=== PATIENT | female | born 1955 | race Caucasian/White ===

== ENCOUNTER 2021-12-29 13:20 | Inpatient (IN) | payer MEDICARE, OTHER, SELFPAY ==
[2021-12-29] VITALS (13 sets, daily range): BP systolic 103–146; BP diastolic 55–94; PULSE 67–93; RESP 18–32; TEMP 36.7–36.9; O2SAT 95–98; BMI 31.5; BMI 42.3
--- NOTE | 2021-12-29 13:52 | ED_ITS ---
HPI - Nausea/Vomiting/Diarrhea General Date Seen: 12/29/21 <Bienvenido Irwin MD - Last Filed: 12/29/21 17:33> Chief complaint: Weakness <Genaro Chambers MD - Last Filed: 12/31/21 12:25> Stated complaint: Diarrhea <Genaro Chambers MD - Last Filed: 12/31/21 12:25> Time Seen by Provider: 12/29/21 13:40 <Genaro Chambers MD - Last Filed: 12/31/21 12:25> History of Present Illness HPI Narrative: 66-year-old woman presenting to the emergency department via EMS with concern of generally weak. Feeling lightheaded; describing in particular any orthostatic maneuver tends to make a rather lightheaded. Increasing perhaps over this last week. Has been having some night sweats chills though has not measured a temperature; presume is a fever. No rash. No dysuria. Extremely exertionally fatigued. No chest pain. She notes how though when she gets up at night to urinate she is rather unsteady. She feels she sees spots in the bathroom like she might be about to pass out. Has been having copious watery stools over the last 2 months or so; started off tended 15 times a day. Two days ago no diarrhea but today has had maybe 10 episodes again. Denies any antibiotics prior to this or during this time. No hematochezia. Over the last week and a half has had increasing cough productive of some whitish sputum. Has also been having some nausea with coughing jags. Son brought some Gatorade over. That apparently did seem to help. Lives independently in an apartment with 2 cats. No abdominal pain. Does have a cardiac history with what sounds like bypass and then stenting. Was seen a week ago in [facility]. Looks like had a CBC there and electrolytes. No otherwise chest x-ray EKG stool studies of some sort were done. She reports that she found out yesterday that the stool studies were normal. Past medical surgical history She reports only abdominal surgery was a Cardiovascular disease status post ?open heart surgery? and stenting. Dyslipidemia environmental/seasonal allergies GERD Medication list that she provides includes acetaminophen Albuterol Amlodipine Aspirin Atorvastatin Budesonide-formoterol Cetirizine Cholecalciferol Ezetimibe Metoprolol succinate 25 mg Nitroglycerin Omeprazole Polyethylene glycol Potassium citrate taking 30 mEq daily <Genaro Chambers MD - Last Filed: 12/31/21 12:25> Related Data Home medications: Home Medications Medication Instructions Recorded Confirmed acetaminophen 325 mg capsule 650 mg PO Q6H PRN 12/29/21 12/29/21 albuterol sulfate 90 mcg/actuation 1 inh inhalation Q4-6H PRN 12/29/21 12/29/21 aerosol inhaler amlodipine 5 mg tablet 5 mg PO DAILY 12/29/21 12/29/21 aspirin 81 mg tablet,delayed 81 mg PO DAILY 12/29/21 12/29/21 release (Adult Aspirin Regimen) atorvastatin 80 mg tablet 80 mg PO DAILY 12/29/21 12/29/21 budesonide-formoterol HFA 160 2 inh inhalation BID 12/29/21 12/29/21 mcg-4.5 mcg/actuation aerosol inhaler cetirizine 10 mg tablet 10 mg PO DAILY PRN 12/29/21 12/29/21 cholecalciferol (vitamin D3) 25 25 mcg PO DAILY 12/29/21 12/29/21 mcg (1,000 unit) capsule ezetimibe 10 mg tablet 10 mg PO DAILY 12/29/21 12/29/21 metoprolol succinate 25 mg 25 mg PO DAILY 12/29/21 12/29/21 tablet,extended release 24 hr nitroglycerin 0.4 mg sublingual 0.4 mg sublingual Q5-15M PRN 12/29/21 12/29/21 tablet (Nitrostat) omeprazole 20 mg tablet,delayed 20 mg PO DAILY 12/29/21 12/29/21 release <Genaro Chambers MD - Last Filed: 12/31/21 12:25> Allergies/Adverse reactions: Allergies Allergy/AdvReac Type Severity Reaction Status Date / Time pseudoephedrine Allergy Intermediate Hives Verified 12/29/21 13:38 [From Sudafed] sulfamethoxazole Allergy Intermediate Hives Verified 12/29/21 13:38 [From Bactrim] trimethoprim [From Bactrim] Allergy Intermediate Hives Verified 12/29/21 13:38 <Genaro Chambers MD - Last Filed: 12/31/21 12:25> Review of Systems Status of ROS: Reports: 10 or more systems reviewed and unremarkable except as noted in History and below <Genaro Chambers MD - Last Filed: 12/31/21 12:25> [facility] Medical History: Medical History Coronary artery disease Degenerative disc disease Diverticulosis Essential hypertension Hepatic steatosis Hiatal hernia History of 2019 novel coronavirus disease (COVID-19) History of colon polyps History of tobacco use Hyperlipidemia Kidney stone Mild asthma Obesity Pulmonary nodule <Genaro Chambers MD - Last Filed: 12/31/21 12:25> Surgical History: Surgical History Status post coronary artery bypass with three autogenous grafts Status post primary angioplasty with coronary stent <Genaro Chambers MD - Last Filed: 12/31/21 12:25> Social History: Social History (Updated 12/29/21 @ 22:42 by Anthony Zaidi MD) Smoking Status: Former smoker What tobacco products do you use: cigarettes Years smoked: 40 Smoking quit date/years: <= 15 years ago Do you use any of these nicotine containing products: None Second hand tobacco smoke exposure: Yes How often do you have a drink containing alcohol: never How often do you have six or more drinks on one occasion: Never AUDIT-C Alcohol total score: 0 Non-prescribed substance use: denies use service: No <Genaro Chambers MD - Last Filed: 12/31/21 12:25> Exam Narrative: Exam Narrative: Appears tired. A little tremulous. Conversing easily enough. Oropharynx is sticky. Somewhat geographic tongue. Cardiovascular with elevated rate. Regular rhythm. Somewhat distant. Lungs appear to be clear. With inspiratory effort starts coughing. Does have some right anterior margin rib tenderness --she thinks maybe from coughing. Abdomen otherwise is soft and nontender. Overweight. Cranial nerves 2-12 intact. Tattoos in lower extremities without edema. <Genaro Chambers MD - Last Filed: 12/31/21 12:25> Const: Vital Signs, click to edit/add: Vital Signs - 24 hr 12/29/21 13:40 Temperature 98.3 F Pulse Rate [Pulse Oximeter] 93 Respiratory Rate 20 Blood Pressure [Le ft Upper Arm] 129/86 Pulse Oximetry 97 Oxygen Delivery Me thod Room Air <Genaro Chambers MD - Last Filed: 12/31/21 12:25> Vital Signs, click to edit/add: Vital Signs - 24 hr 12/29/21 13:40 Temperature 98.3 F Pulse Rate [Pulse Oximeter] 93 Respiratory Rate 20 Blood Pressure [Le ft Upper Arm] 129/86 Pulse Oximetry 97 Oxygen Delivery Me thod Room Air <Bienvenido Irwin MD - Last Filed: 12/29/21 17:33> Documenting provider has reviewed patient's vital signs: yes <Genaro Chambers MD - Last Filed: 12/31/21 12:25> Course Course Hospital Course: Fluids and antiemetics <Genaro Chambers MD - Last Filed: 12/31/21 12:25> Reevaluation(s) Reevaluation #1: After receiving L of normal saline and Zofran, reports not feeling any better and she is worried that if she goes home she might fall. Will be replacing low potassium and low magnesium. She does note that she takes potassium chronically. Initiating another L of fluids and Reglan piggyback <Genaro Chambers MD - Last Filed: 12/31/21 12:25> Vital Signs Vital signs: Initial Vital Signs Temperature 98.3 F 12/29/21 13:40 Temperature Source Temporal Artery Scan 12/29/21 13:40 Pulse Rate 93 12/29/21 13:40 Respiratory Rate 20 12/29/21 13:40 Blood Pressure 129/86 12/29/21 13:40 Blood Pressure Mean 100 12/29/21 13:40 Pulse Oximetry 97 12/29/21 13:40 Oxygen Delivery Method 12/29/21 13:40 Vital Signs Temperature 98.3 F 12/29/21 13:40 Pulse Rate 93 12/29/21 13:40 Respiratory Rate 20 12/29/21 13:40 Blood Pressure 129/86 12/29/21 13:40 Pulse Oximetry 97 12/29/21 13:40 Oxygen Delivery Method 12/29/21 13:40 Temperature 98.4 F 12/31/21 07:45 Pulse Rate 76 12/31/21 07:45 Respiratory Rate 18 12/31/21 07:45 Blood Pressure 144/77 H 12/31/21 07:45 Pulse Oximetry 96 12/31/21 07:45 Oxygen Delivery Method 12/31/21 07:45 <Genaro Chambers MD - Last Filed: 12/31/21 12:25> Initial Vital Signs Temperature 98.3 F 12/29/21 13:40 Temperature Source Temporal Artery Scan 12/29/21 13:40 Pulse Rate 93 12/29/21 13:40 Respiratory Rate 20 12/29/21 13:40 Blood Pressure 129/86 12/29/21 13:40 Blood Pressure Mean 100 12/29/21 13:40 Pulse Oximetry 97 12/29/21 13:40 Oxygen Delivery Method 12/29/21 13:40 Vital Signs Temperature 98.3 F 12/29/21 13:40 Pulse Rate 93 12/29/21 13:40 Respiratory Rate 20 12/29/21 13:40 Blood Pressure 129/86 12/29/21 13:40 Pulse Oximetry 97 12/29/21 13:40 Oxygen Delivery Method 12/29/21 13:40 Temperature 98.4 F 12/31/21 07:45 Pulse Rate 76 12/31/21 07:45 Respiratory Rate 18 12/31/21 07:45 Blood Pressure 144/77 H 12/31/21 07:45 Pulse Oximetry 96 12/31/21 07:45 Oxygen Delivery Method 12/31/21 07:45 <Bienvenido Irwin MD - Last Filed: 12/29/21 17:33> MDM - Nausea/Vomiting/Diarrhea MDM Narrative Medical decision making narrative: Chest x-ray by my read looks unremarkable. With chemistry analyzer now available, both potassium and magnesium are low. Will be replacing. Elevated transaminases thinking might be related to gastrointestinal illness or fatty liver however repeat exam does reveal more discrete right upper quadrant abdominal tenderness. I would consider abdominal ultrasound however this probably does not explain diarrhea in addition she still has her gallbladder. Cannot obtain short order colonoscopy. CT abdomen pelvis is pending Formal orthostatics are still pending -- I observed these orthostatics. She was very shaky and weak. Pulse did go up significantly though blood pressure was stable. She would normally be beta blocked I would think but did not take her medications today. I would have concerns about sending home alone. <Genaro Chambers MD - Last Filed: 12/31/21 12:25> Chest x-ray by my read looks unremarkable. With chemistry analyzer now available, both potassium and magnesium are low. Will be replacing. Elevated transaminases thinking might be related to gastrointestinal illness or fatty liver however repeat exam does reveal more discrete right upper quadrant abdominal tenderness. I would consider abdominal ultrasound however this probably does not explain diarrhea in addition she still has her gallbladder. Cannot obtain short order colonoscopy. CT abdomen pelvis is pending Formal orthostatics are still pending -- I observed these orthostatics. She was very shaky and weak. Pulse did go up significantly though blood pressure was stable. She would normally be beta blocked I would think but did not take her medications today. I would have concerns about sending home alone. Urinalysis shows definite UTI. Unclear if this is the cause of the patient's symptoms or other factors are involved. CT still pending. Initiate ceftriaxone. Regardless of the results of CT patient is too weak to be discharged to home. Potassium and magnesium are being replaced. <Bienvenido Iriwn MD - Last Filed: 12/29/21 17:33> Medical Records Attestation: I reviewed the patient's medical records. <Genaro Chambers MD - Last Filed: 12/31/21 12:25> Lab Data Attestation: I reviewed the patient's lab results. <Genaro Chambers MD - Last Filed: 12/31/21 12:25> Labs: Lab Results 12/29/21 12/29/21 12/29/21 Range/Units 14:47 14:47 14:47 WBC 6.84 (4.50-11.00) K/uL RBC 4.12 (4.00-5.20) m/uL Hgb 13.2 (12.0-16.0) gm/dL Hct 39.8 (33.0-51.0) % MCV 97 (80-100) fL MCH 32 (26-34) pg MCHC 33 (32-36) gm/dL RDW Coeff of [place] 13.5 (11.5-15.5) % Plt Count 144 (140-440) K/uL Neut % (Auto) 82.5 H (42.0-72.0) % Lymph % (Auto) 8.2 L (20-44) % [place] % (Auto) 7.7 (0.0-11.0) % Eos % (Auto) 0.9 (0.0-7.0) % Baso % (Auto) 0.3 (0.0-3.0) % Neut # (Auto) 5.60 (1.7-7.0) K/uL Lymph # (Auto) 0.60 L (0.90-2.90) K/uL [place] # (Auto) 0.50 (0.00-0.90) K/UL Eos # (Auto) 0.06 (0.00-0.50) K/uL Baso # (Auto) 0.02 (0.00-0.30) K/uL Abs Immat Gran (auto) 0.03 (0.00-0.30) K/uL D-Dimer Quant (PE/DVT) 0.38 (0.00-0.50) ug/ml Sodium 133 L (135-149) mmol/L Potassium 3.2 L (3.6-5.1) mmol/L Chloride 100 (96-114) mmol/L Carbon Dioxide 23 (20-32) mmol/L BUN 6 L (7-30) mg/dL Creatinine 0.7 (0.5-1.5) mg/dL Estimated Creat Clear 50.41 Estimated GFR 94 ml/min Glucose 122 H (60-115) mg/dL Venous Lactic Acid (Serial Order) Calcium 8.6 (8.4-10.6) mg/dL Magnesium 1.4 L (1.5-2.6) mg/dL Total Bilirubin 1.2 (0.1-1.5) mg/dL Direct Bilirubin 0.6 H (0.0-0.5) mg/dL GGT (8-55) U/L AST 91 H (12-35) U/L ALT 65 H (4-35) U/L Alkaline Phosphatase 130 (40-150) U/L Troponin I < 0.01 L (0.01-0.04) ng/mL C-Reactive Protein 1.9 H (0.5-1.0) mg/dL NT-Pro-B Natriuret Pep 454 H (0-125) PG/mL Total Protein 6.8 (6.0-8.3) g/dL Albumin 3.8 (3.3-5.0) g/dL Lipase 85 (23-300) U/L Urine Color (Yellow) Urine Appearance (Clear) Urine pH (5.0-8.5) Ur Specific [place] (1.000-1.030) Urine Protein (Negative) Urine Glucose (UA) (Negative) Urine Ketones (Negative) Urine Blood (Negative) Urine Nitrite (Negative) Urine Bilirubin (Negative) Urine Urobilinogen (0.2-1.0) Ur Leukocyte Esterase (Negative) Urine RBC (0-2) Urine WBC (0-5) Ur Squamous Epith Cells (None-Few) Urine Bacteria (None) Stl C.difficile Tox PCR (Negative) Ethyl Alcohol < 0.01 L (0.01-0.03) % St C. diff Tox Epid 027 (Negative) SARS-CoV-2 (PCR) (Negative) POC Creatinine (0.6-1.3) mg/dl POC Troponin I (0.01-0.04) ng/ml 12/29/21 12/29/21 12/29/21 Range/Units 14:49 14:49 16:36 WBC (4.50-11.00) K/uL RBC (4.00-5.20) m/uL Hgb (12.0-16.0) gm/dL Hct (33.0-51.0) % MCV (80-100) fL MCH (26-34) pg MCHC (32-36) gm/dL RDW Coeff of [place] (11.5-15.5) % Plt Count (140-440) K/uL Neut % (Auto) (42.0-72.0) % Lymph % (Auto) (20-44) % [place] % (Auto) (0.0-11.0) % Eos % (Auto) (0.0-7.0) % Baso % (Auto) (0.0-3.0) % Neut # (Auto) (1.7-7.0) K/uL Lymph # (Auto) (0.90-2.90) K/uL [place] # (Auto) (0.00-0.90) K/UL Eos # (Auto) (0.00-0.50) K/uL Baso # (Auto) (0.00-0.30) K/uL Abs Immat Gran (auto) (0.00-0.30) K/uL D-Dimer Quant (PE/DVT) (0.00-0.50) ug/ml Sodium (135-149) mmol/L Potassium (3.6-5.1) mmol/L Chloride (96-114) mmol/L Carbon Dioxide (20-32) mmol/L BUN (7-30) mg/dL Creatinine (0.5-1.5) mg/dL Estimated Creat Clear Estimated GFR ml/min Glucose (60-115) mg/dL Venous Lactic Acid (Serial Order) Calcium (8.4-10.6) mg/dL Magnesium (1.5-2.6) mg/dL Total Bilirubin (0.1-1.5) mg/dL Direct Bilirubin (0.0-0.5) mg/dL GGT (8-55) U/L AST (12-35) U/L ALT (4-35) U/L Alkaline Phosphatase (40-150) U/L Troponin I (0.01-0.04) ng/mL C-Reactive Protein (0.5-1.0) mg/dL NT-Pro-B Natriuret Pep (0-125) PG/mL Total Protein (6.0-8.3) g/dL Albumin (3.3-5.0) g/dL Lipase (23-300) U/L Urine Color [place] A (Yellow) Urine Appearance Cloudy A (Clear) Urine pH 6.5 (5.0-8.5) Ur Specific [place] 1.010 (1.000-1.030) Urine Protein 2+ A (Negative) Urine Glucose (UA) Negative (Negative) Urine Ketones Negative (Negative) Urine Blood 1+ A (Negative) Urine Nitrite Negative (Negative) Urine Bilirubin Negative (Negative) Urine Urobilinogen 2.0 A (0.2-1.0) Ur Leukocyte Esterase 1+ A (Negative) Urine RBC 25-50 A (0-2) Urine WBC 50-100 A (0-5) Ur Squamous Epith Cells Moderate A (None-Few) Urine Bacteria Many A (None) Stl C.difficile Tox PCR (Negative) Ethyl Alcohol (0.01-0.03) % St C. diff Tox Epid 027 (Negative) SARS-CoV-2 (PCR) (Negative) POC Creatinine 0.7 (0.6-1.3) mg/dl POC Troponin I 0.01 (0.01-0.04) ng/ml 12/29/21 12/29/21 12/30/21 Range/Units 20:22 Unknown 06:42 WBC 5.90 (4.50-11.00) K/uL RBC 3.94 L (4.00-5.20) m/uL Hgb 12.7 (12.0-16.0) gm/dL Hct 38.4 (33.0-51.0) % MCV 98 (80-100) fL MCH 32 (26-34) pg MCHC 33 (32-36) gm/dL RDW Coeff of [place] (11.5-15.5) % Plt Count 134 L (140-440) K/uL Neut % (Auto) (42.0-72.0) % Lymph % (Auto) (20-44) % [place] % (Auto) (0.0-11.0) % Eos % (Auto) (0.0-7.0) % Baso % (Auto) (0.0-3.0) % Neut # (Auto) (1.7-7.0) K/uL Lymph # (Auto) (0.90-2.90) K/uL [place] # (Auto) (0.00-0.90) K/UL Eos # (Auto) (0.00-0.50) K/uL Baso # (Auto) (0.00-0.30) K/uL Abs Immat Gran (auto) (0.00-0.30) K/uL D-Dimer Quant (PE/DVT) (0.00-0.50) ug/ml Sodium (135-149) mmol/L Potassium (3.6-5.1) mmol/L Chloride (96-114) mmol/L Carbon Dioxide (20-32) mmol/L BUN (7-30) mg/dL Creatinine (0.5-1.5) mg/dL Estimated Creat Clear Estimated GFR ml/min Glucose (60-115) mg/dL Venous Lactic Acid (Serial Order) Calcium (8.4-10.6) mg/dL Magnesium (1.5-2.6) mg/dL Total Bilirubin (0.1-1.5) mg/dL Direct Bilirubin (0.0-0.5) mg/dL GGT (8-55) U/L AST (12-35) U/L ALT (4-35) U/L Alkaline Phosphatase (40-150) U/L Troponin I (0.01-0.04) ng/mL C-Reactive Protein (0.5-1.0) mg/dL NT-Pro-B Natriuret Pep (0-125) PG/mL Total Protein (6.0-8.3) g/dL Albumin (3.3-5.0) g/dL Lipase (23-300) U/L Urine Color (Yellow) Urine Appearance (Clear) Urine pH (5.0-8.5) Ur Specific [place] (1.000-1.030) Urine Protein (Negative) Urine Glucose (UA) (Negative) Urine Ketones (Negative) Urine Blood (Negative) Urine Nitrite (Negative) Urine Bilirubin (Negative) Urine Urobilinogen (0.2-1.0) Ur Leukocyte Esterase (Negative) Urine RBC (0-2) Urine WBC (0-5) Ur Squamous Epith Cells (None-Few) Urine Bacteria (None) Stl C.difficile Tox PCR Negative (Negative) Ethyl Alcohol (0.01-0.03) % St C. diff Tox Epid 027 PRESUMPTIVE NEGATIVE (Negative) SARS-CoV-2 (PCR) Negative SARS-CoV-2 (Negative) POC Creatinine (0.6-1.3) mg/dl POC Troponin I (0.01-0.04) ng/ml 12/30/21 Range/Units 06:42 WBC (4.50-11.00) K/uL RBC (4.00-5.20) m/uL Hgb (12.0-16.0) gm/dL Hct (33.0-51.0) % MCV (80-100) fL MCH (26-34) pg MCHC (32-36) gm/dL RDW Coeff of [place] (11.5-15.5) % Plt Count (140-440) K/uL Neut % (Auto) (42.0-72.0) % Lymph % (Auto) (20-44) % [place] % (Auto) (0.0-11.0) % Eos % (Auto) (0.0-7.0) % Baso % (Auto) (0.0-3.0) % Neut # (Auto) (1.7-7.0) K/uL Lymph # (Auto) (0.90-2.90) K/uL [place] # (Auto) (0.00-0.90) K/UL Eos # (Auto) (0.00-0.50) K/uL Baso # (Auto) (0.00-0.30) K/uL Abs Immat Gran (auto) (0.00-0.30) K/uL D-Dimer Quant (PE/DVT) (0.00-0.50) ug/ml Sodium 132 L (135-149) mmol/L Potassium 3.6 (3.6-5.1) mmol/L Chloride 99 (96-114) mmol/L Carbon Dioxide 22 (20-32) mmol/L BUN 7 (7-30) mg/dL Creatinine 0.8 (0.5-1.5) mg/dL Estimated Creat Clear 46.50 Estimated GFR 80 ml/min Glucose 113 (60-115) mg/dL Venous Lactic Acid (Serial Order) Calcium 8.1 L (8.4-10.6) mg/dL Magnesium 2.3 (1.5-2.6) mg/dL Total Bilirubin 1.0 (0.1-1.5) mg/dL Direct Bilirubin 0.6 H (0.0-0.5) mg/dL GGT 502 H (8-55) U/L AST 112 H (12-35) U/L ALT 67 H (4-35) U/L Alkaline Phosphatase 134 (40-150) U/L Troponin I (0.01-0.04) ng/mL C-Reactive Protein 4.0 H (0.5-1.0) mg/dL NT-Pro-B Natriuret Pep (0-125) PG/mL Total Protein 6.7 (6.0-8.3) g/dL Albumin 3.8 (3.3-5.0) g/dL Lipase 84 (23-300) U/L Urine Color (Yellow) Urine Appearance (Clear) Urine pH (5.0-8.5) Ur Specific [place] (1.000-1.030) Urine Protein (Negative) Urine Glucose (UA) (Negative) Urine Ketones (Negative) Urine Blood (Negative) Urine Nitrite (Negative) Urine Bilirubin (Negative) Urine Urobilinogen (0.2-1.0) Ur Leukocyte Esterase (Negative) Urine RBC (0-2) Urine WBC (0-5) Ur Squamous Epith Cells (None-Few) Urine Bacteria (None) Stl C.difficile Tox PCR (Negative) Ethyl Alcohol (0.01-0.03) % St C. diff Tox Epid 027 (Negative) SARS-CoV-2 (PCR) (Negative) POC Creatinine (0.6-1.3) mg/dl POC Troponin I (0.01-0.04) ng/ml <Genaro Chambers MD - Last Filed: 12/31/21 12:25> Lab Results 12/29/21 12/29/21 12/29/21 Range/Units 14:47 14:47 14:47 WBC 6.84 (4.50-11.00) K/uL RBC 4.12 (4.00-5.20) m/uL Hgb 13.2 (12.0-16.0) gm/dL Hct 39.8 (33.0-51.0) % MCV 97 (80-100) fL MCH 32 (26-34) pg MCHC 33 (32-36) gm/dL RDW Coeff of [place] 13.5 (11.5-15.5) % Plt Count 144 (140-440) K/uL Neut % (Auto) 82.5 H (42.0-72.0) % Lymph % (Auto) 8.2 L (20-44) % [place] % (Auto) 7.7 (0.0-11.0) % Eos % (Auto) 0.9 (0.0-7.0) % Baso % (Auto) 0.3 (0.0-3.0) % Neut # (Auto) 5.60 (1.7-7.0) K/uL Lymph # (Auto) 0.60 L (0.90-2.90) K/uL [place] # (Auto) 0.50 (0.00-0.90) K/UL Eos # (Auto) 0.06 (0.00-0.50) K/uL Baso # (Auto) 0.02 (0.00-0.30) K/uL Abs Immat Gran (auto) 0.03 (0.00-0.30) K/uL D-Dimer Quant (PE/DVT) 0.38 (0.00-0.50) ug/ml Sodium 133 L (135-149) mmol/L Potassium 3.2 L (3.6-5.1) mmol/L Chloride 100 (96-114) mmol/L Carbon Dioxide 23 (20-32) mmol/L BUN 6 L (7-30) mg/dL Creatinine 0.7 (0.5-1.5) mg/dL Estimated Creat Clear 50.41 Estimated GFR 94 ml/min Glucose 122 H (60-115) mg/dL Venous Lactic Acid (Serial Order) Calcium 8.6 (8.4-10.6) mg/dL Magnesium 1.4 L (1.5-2.6) mg/dL Total Bilirubin 1.2 (0.1-1.5) mg/dL Direct Bilirubin 0.6 H (0.0-0.5) mg/dL GGT (8-55) U/L AST 91 H (12-35) U/L ALT 65 H (4-35) U/L Alkaline Phosphatase 130 (40-150) U/L Troponin I < 0.01 L (0.01-0.04) ng/mL C-Reactive Protein 1.9 H (0.5-1.0) mg/dL NT-Pro-B Natriuret Pep 454 H (0-125) PG/mL Total Protein 6.8 (6.0-8.3) g/dL Albumin 3.8 (3.3-5.0) g/dL Lipase 85 (23-300) U/L Urine Color (Yellow) Urine Appearance (Clear) Urine pH (5.0-8.5) Ur Specific [place] (1.000-1.030) Urine Protein (Negative) Urine Glucose (UA) (Negative) Urine Ketones (Negative) Urine Blood (Negative) Urine Nitrite (Negative) Urine Bilirubin (Negative) Urine Urobilinogen (0.2-1.0) Ur Leukocyte Esterase (Negative) Urine RBC (0-2) Urine WBC (0-5) Ur Squamous Epith Cells (None-Few) Urine Bacteria (None) Stl C.difficile Tox PCR (Negative) Ethyl Alcohol < 0.01 L (0.01-0.03) % St C. diff Tox Epid 027 (Negative) SARS-CoV-2 (PCR) (Negative) POC Creatinine (0.6-1.3) mg/dl POC Troponin I (0.01-0.04) ng/ml 12/29/21 12/29/21 12/29/21 Range/Units 14:49 14:49 16:36 WBC (4.50-11.00) K/uL RBC (4.00-5.20) m/uL Hgb (12.0-16.0) gm/dL Hct (33.0-51.0) % MCV (80-100) fL MCH (26-34) pg MCHC (32-36) gm/dL RDW Coeff of [place] (11.5-15.5) % Plt Count (140-440) K/uL Neut % (Auto) (42.0-72.0) % Lymph % (Auto) (20-44) % [place] % (Auto) (0.0-11.0) % Eos % (Auto) (0.0-7.0) % Baso % (Auto) (0.0-3.0) % Neut # (Auto) (1.7-7.0) K/uL Lymph # (Auto) (0.90-2.90) K/uL [place] # (Auto) (0.00-0.90) K/UL Eos # (Auto) (0.00-0.50) K/uL Baso # (Auto) (0.00-0.30) K/uL Abs Immat Gran (auto) (0.00-0.30) K/uL D-Dimer Quant (PE/DVT) (0.00-0.50) ug/ml Sodium (135-149) mmol/L Potassium (3.6-5.1) mmol/L Chloride (96-114) mmol/L Carbon Dioxide (20-32) mmol/L BUN (7-30) mg/dL Creatinine (0.5-1.5) mg/dL Estimated Creat Clear Estimated GFR ml/min Glucose (60-115) mg/dL Venous Lactic Acid (Serial Order) Calcium (8.4-10.6) mg/dL Magnesium (1.5-2.6) mg/dL Total Bilirubin (0.1-1.5) mg/dL Direct Bilirubin (0.0-0.5) mg/dL GGT (8-55) U/L AST (12-35) U/L ALT (4-35) U/L Alkaline Phosphatase (40-150) U/L Troponin I (0.01-0.04) ng/mL C-Reactive Protein (0.5-1.0) mg/dL NT-Pro-B Natriuret Pep (0-125) PG/mL Total Protein (6.0-8.3) g/dL Albumin (3.3-5.0) g/dL Lipase (23-300) U/L Urine Color [place] A (Yellow) Urine Appearance Cloudy A (Clear) Urine pH 6.5 (5.0-8.5) Ur Specific [place] 1.010 (1.000-1.030) Urine Protein 2+ A (Negative) Urine Glucose (UA) Negative (Negative) Urine Ketones Negative (Negative) Urine Blood 1+ A (Negative) Urine Nitrite Negative (Negative) Urine Bilirubin Negative (Negative) Urine Urobilinogen 2.0 A (0.2-1.0) Ur Leukocyte Esterase 1+ A (Negative) Urine RBC 25-50 A (0-2) Urine WBC 50-100 A (0-5) Ur Squamous Epith Cells Moderate A (None-Few) Urine Bacteria Many A (None) Stl C.difficile Tox PCR (Negative) Ethyl Alcohol (0.01-0.03) % St C. diff Tox Epid 027 (Negative) SARS-CoV-2 (PCR) (Negative) POC Creatinine 0.7 (0.6-1.3) mg/dl POC Troponin I 0.01 (0.01-0.04) ng/ml 12/29/21 12/29/21 12/30/21 Range/Units 20:22 Unknown 06:42 WBC 5.90 (4.50-11.00) K/uL RBC 3.94 L (4.00-5.20) m/uL Hgb 12.7 (12.0-16.0) gm/dL Hct 38.4 (33.0-51.0) % MCV 98 (80-100) fL MCH 32 (26-34) pg MCHC 33 (32-36) gm/dL RDW Coeff of [place] (11.5-15.5) % Plt Count 134 L (140-440) K/uL Neut % (Auto) (42.0-72.0) % Lymph % (Auto) (20-44) % [place] % (Auto) (0.0-11.0) % Eos % (Auto) (0.0-7.0) % Baso % (Auto) (0.0-3.0) % Neut # (Auto) (1.7-7.0) K/uL Lymph # (Auto) (0.90-2.90) K/uL [place] # (Auto) (0.00-0.90) K/UL Eos # (Auto) (0.00-0.50) K/uL Baso # (Auto) (0.00-0.30) K/uL Abs Immat Gran (auto) (0.00-0.30) K/uL D-Dimer Quant (PE/DVT) (0.00-0.50) ug/ml Sodium (135-149) mmol/L Potassium (3.6-5.1) mmol/L Chloride (96-114) mmol/L Carbon Dioxide (20-32) mmol/L BUN (7-30) mg/dL Creatinine (0.5-1.5) mg/dL Estimated Creat Clear Estimated GFR ml/min Glucose (60-115) mg/dL Venous Lactic Acid (Serial Order) Calcium (8.4-10.6) mg/dL Magnesium (1.5-2.6) mg/dL Total Bilirubin (0.1-1.5) mg/dL Direct Bilirubin (0.0-0.5) mg/dL GGT (8-55) U/L AST (12-35) U/L ALT (4-35) U/L Alkaline Phosphatase (40-150) U/L Troponin I (0.01-0.04) ng/mL C-Reactive Protein (0.5-1.0) mg/dL NT-Pro-B Natriuret Pep (0-125) PG/mL Total Protein (6.0-8.3) g/dL Albumin (3.3-5.0) g/dL Lipase (23-300) U/L Urine Color (Yellow) Urine Appearance (Clear) Urine pH (5.0-8.5) Ur Specific [place] (1.000-1.030) Urine Protein (Negative) Urine Glucose (UA) (Negative) Urine Ketones (Negative) Urine Blood (Negative) Urine Nitrite (Negative) Urine Bilirubin (Negative) Urine Urobilinogen (0.2-1.0) Ur Leukocyte Esterase (Negative) Urine RBC (0-2) Urine WBC (0-5) Ur Squamous Epith Cells (None-Few) Urine Bacteria (None) Stl C.difficile Tox PCR Negative (Negative) Ethyl Alcohol (0.01-0.03) % St C. diff Tox Epid 027 PRESUMPTIVE NEGATIVE (Negative) SARS-CoV-2 (PCR) Negative SARS-CoV-2 (Negative) POC Creatinine (0.6-1.3) mg/dl POC Troponin I (0.01-0.04) ng/ml 12/30/21 Range/Units 06:42 WBC (4.50-11.00) K/uL RBC (4.00-5.20) m/uL Hgb (12.0-16.0) gm/dL Hct (33.0-51.0) % MCV (80-100) fL MCH (26-34) pg MCHC (32-36) gm/dL RDW Coeff of [place] (11.5-15.5) % Plt Count (140-440) K/uL Neut % (Auto) (42.0-72.0) % Lymph % (Auto) (20-44) % [place] % (Auto) (0.0-11.0) % Eos % (Auto) (0.0-7.0) % Baso % (Auto) (0.0-3.0) % Neut # (Auto) (1.7-7.0) K/uL Lymph # (Auto) (0.90-2.90) K/uL [place] # (Auto) (0.00-0.90) K/UL Eos # (Auto) (0.00-0.50) K/uL Baso # (Auto) (0.00-0.30) K/uL Abs Immat Gran (auto) (0.00-0.30) K/uL D-Dimer Quant (PE/DVT) (0.00-0.50) ug/ml Sodium 132 L (135-149) mmol/L Potassium 3.6 (3.6-5.1) mmol/L Chloride 99 (96-114) mmol/L Carbon Dioxide 22 (20-32) mmol/L BUN 7 (7-30) mg/dL Creatinine 0.8 (0.5-1.5) mg/dL Estimated Creat Clear 46.50 Estimated GFR 80 ml/min Glucose 113 (60-115) mg/dL Venous Lactic Acid (Serial Order) Calcium 8.1 L (8.4-10.6) mg/dL Magnesium 2.3 (1.5-2.6) mg/dL Total Bilirubin 1.0 (0.1-1.5) mg/dL Direct Bilirubin 0.6 H (0.0-0.5) mg/dL GGT 502 H (8-55) U/L AST 112 H (12-35) U/L ALT 67 H (4-35) U/L Alkaline Phosphatase 134 (40-150) U/L Troponin I (0.01-0.04) ng/mL C-Reactive Protein 4.0 H (0.5-1.0) mg/dL NT-Pro-B Natriuret Pep (0-125) PG/mL Total Protein 6.7 (6.0-8.3) g/dL Albumin 3.8 (3.3-5.0) g/dL Lipase 84 (23-300) U/L Urine Color (Yellow) Urine Appearance (Clear) Urine pH (5.0-8.5) Ur Specific [place] (1.000-1.030) Urine Protein (Negative) Urine Glucose (UA) (Negative) Urine Ketones (Negative) Urine Blood (Negative) Urine Nitrite (Negative) Urine Bilirubin (Negative) Urine Urobilinogen (0.2-1.0) Ur Leukocyte Esterase (Negative) Urine RBC (0-2) Urine WBC (0-5) Ur Squamous Epith Cells (None-Few) Urine Bacteria (None) Stl C.difficile Tox PCR (Negative) Ethyl Alcohol (0.01-0.03) % St C. diff Tox Epid 027 (Negative) SARS-CoV-2 (PCR) (Negative) POC Creatinine (0.6-1.3) mg/dl POC Troponin I (0.01-0.04) ng/ml <Bienvenido Irwin MD - Last Filed: 12/29/21 17:33> ECG Data Attestation: I personally reviewed and interpreted this ECG as follows: (Normal sinus rhythm. Old left bundle branch block.) <Bienvenido Irwin MD - Last Filed: 12/29/21 17:33> Discharge Plan Discharge Clinical Impression: Diarrhea, Weakness <Genaro Chambers MD - Last Filed: 12/31/21 12:25> Patient Disposition: Admitted As Inpatient <Genaro Chambers MD - Last Filed: 12/31/21 12:25> Critical Care Time Critical Care Time Critical Care Time: Yes Attestation: The patient required my highest level preparedness to intervene emergently and I personally spent this critical care time directly and personally managing the patient. This critical care time included: Obtaining a history; Examining the patient; Pulse oximetry; Ordering and reviewing of studies; Arranging urgent treatment with development of a management plan; Evaluation of patients response to treatment; Frequent reassessment discussions with other providers. This critical care time was performed to assess and manage the high probability of imminent life-threatening deterioration that could result in multiorgan failure. It was exclusive of separate billable procedures and treating other patients and teaching time. <Genaro Chambers MD - Last Filed: 12/31/21 12:25> Total Critical Care Time in Minutes: 70 <Genaro Chambers MD - Last Filed: 12/31/21 12:25>
--- NOTE | 2021-12-29 13:55 | CRLHL7_ITS ---
For Patients: As a result of the Cures Act, medical imaging exams and procedure reports are released immediately into your electronic medical record. You may view this report before your referring provider. If you have questions, please contact your health care provider. INDICATION: Productive cough and chills. Diarrhea. TECHNIQUE: Chest 2 views. COMPARISON: None. FINDINGS: Cardiovascular and mediastinum: Heart size and vasculature are normal in caliber and appearance. Lungs and pleural spaces: Lungs are clear. No sign of infiltrate or mass. No sign of pleural effusion. No pneumothorax. Bones and soft tissues: Multilevel ankylosis of the thoracic spine. IMPRESSION: No acute cardiopulmonary abnormality. No sign of pneumonia. Dictated by Monico Chavez MD @ 12/29/2021 2:30:06 PM (Electronically Signed)
[2021-12-29] MEDS: 0.9 % SODIUM CHLORIDE 1000 ml 1,000 ML IV ×2 (14:26→22:26)
[2021-12-29] MEDS: ONDANSETRON 2 MG/ML inj 4 MG IVP (14:26)
[2021-12-29 15:08] LABS: Lactate Sepsis w/Reflex* 1.3 mmol/L (0.5-1.9)
[2021-12-29 15:13] LABS: Basophils Absolute Auto 0.02 K/uL (0.00-0.30); Basophils Percent Auto 0.3 % (0.0-3.0); Eosinophils Absolute Auto 0.06 K/uL (0.00-0.50); Eosinophils Percent Auto 0.9 % (0.0-7.0); Hematocrit 39.8 % (33.0-51.0); Hemoglobin* 13.2 gm/dL (12.0-16.0); Immature Granulocytes Abs Auto 0.03 K/uL (0.00-0.30); Lymphocytes Percent Auto 8.2 % (20-44); Mean Corpuscular HGB Conc 33 gm/dL (32-36); Mean Corpuscular Hemoglobin 32 pg (26-34); Mean Corpuscular Volume 97 fL (80-100); Monocytes Percent Auto 7.7 % (0.0-11.0); Neutrophils Percent Auto 82.5 % (42.0-72.0); Platelet Count* 144 K/uL (140-440); RDW Coefficient of Variation % 13.5 % (11.5-15.5); Red Blood Count 4.12 m/uL (4.00-5.20); White Blood Count* 6.84 K/uL (4.50-11.00)
[2021-12-29 15:16] LABS: Troponin, Point-of-Care* 0.01 ng/ml (0.01-0.04)
[2021-12-29 15:16] LABS: SARS PCR* Negative SARS-CoV-2 (Negative)
[2021-12-29 15:26] LABS: Slide Review Reflex No
[2021-12-29 15:30] LABS: Creatinine, Point-of-Care* 0.7 mg/dl (0.6-1.3)
[2021-12-29 15:32] LABS: Albumin* 3.8 g/dL (3.3-5.0); Chloride* 100 mmol/L (96-114)
[2021-12-29 15:33] LABS: Potassium* 3.2 mmol/L (3.6-5.1); Sodium* 133 mmol/L (135-149)
[2021-12-29 15:35] LABS: Aspartate Amino Transferase* 91 U/L (12-35); Bilirubin Direct* 0.6 mg/dL (0.0-0.5); Bilirubin Total* 1.2 mg/dL (0.1-1.5); Carbon Dioxide* 23 mmol/L (20-32); Creatinine* 0.7 mg/dL (0.5-1.5); Est. Creatinine Clearance* 50.41; Estimated Glomerular Filt Rate 94 ml/min; Total Protein* 6.8 g/dL (6.0-8.3)
[2021-12-29 15:36] LABS: Alanine Aminotransferase* 65 U/L (4-35); Alkaline Phosphatase* 130 U/L (40-150); Blood Urea Nitrogen* 6 mg/dL (7-30); Calcium* 8.6 mg/dL (8.4-10.6); Glucose* 122 mg/dL (60-115); Magnesium* 1.4 mg/dL (1.5-2.6)
[2021-12-29 15:38] LABS: C Reactive Protein* 1.9 mg/dL (0.5-1.0)
[2021-12-29 15:44] LABS: D Dimer Quantitative* 0.38 ug/ml (0.00-0.50)
[2021-12-29 15:45] LABS: NT Pro B Type NatriureticPept* 454 PG/mL (0-125)
[2021-12-29 15:51] LABS: Troponin I* < 0.01 ng/mL (0.01-0.04)
--- NOTE | 2021-12-29 16:18 | CRLHL7_ITS ---
For Patients: As a result of the Century Cures Act, medical imaging exams and procedure reports are released immediately into your electronic medical record. You may view this report before your referring provider. If you have questions, please contact your health care provider. INDICATION: Diarrhea. Weakness, night sweats. TECHNIQUE: CT abdomen and pelvis acquired with 95 cc Isovue 370 IV contrast. COMPARISON: None. FINDINGS: Lower chest: Small hiatal hernia. Liver: Diffuse hepatic steatosis. No suspicious masses. Gallbladder and bile ducts: Unremarkable. No stones or inflammation. No biliary ductal dilatation. Spleen: Unremarkable. Normal in size. No masses. Adrenal glands: Unremarkable. No nodules. Pancreas: Unremarkable. No mass or inflammation. Kidneys: Unremarkable. No suspicious masses, stones, or hydronephrosis. GI tract: Normal in caliber. Scattered colonic diverticula without evidence of diverticulitis. Normal appendix. Lymph nodes: No lymphadenopathy. Vasculature: Scattered atherosclerotic calcifications. Omentum/Peritoneum/Abdominal Wall: Unremarkable. No sign of mass or infiltration. No free air or significant free fluid. Pelvis: Status post hysterectomy. Bones: Multilevel degenerative changes throughout the spine. Mild grade 1 anterolisthesis L4 on L5. IMPRESSION: 1. No acute abdominal or pelvic abnormalities. 2. Hepatic steatosis. 3. Small hiatal hernia. 4. Scattered colonic diverticula without evidence of diverticulitis. Please note that all CT scans at this facility use dose modulation, iterative reconstruction, and/or weight-based dosing when appropriate to reduce radiation dose to as low as reasonably achievable. Dictated by Vicente Dyer MD @ 12/29/2021 7:19:25 PM (Electronically Signed)
[2021-12-29] MEDS: LACTATED RINGERS 1000 ML IV (16:21)
[2021-12-29 16:40] LABS: Appearance Urine Cloudy (Clear); Bilirubin Urine Negative (Negative); Blood Urine 1+ (Negative); Color Urine Amber (Yellow); Glucose Urine Negative (Negative); Ketones Urine Negative (Negative); Leukocyte Esterase Urine 1+ (Negative); Nitrite Urine Negative (Negative); Protein Urine 2+ (Negative); pH Urine 6.5 (5.0-8.5)
[2021-12-29] MEDS: MAGNESIUM SULFATE 2 GM/50 ML PIGGYBACK IVPB ×2 (16:51→22:27)
[2021-12-29 16:55] LABS: RBC Urine 25-50 (0-2)
[2021-12-29 16:56] LABS: Bacteria Urine Many; Squamous Epithelial Cell Urine Moderate (None-Few); WBC Urine 50-100 (0-5)
[2021-12-29] MEDS: METOCLOPRAMIDE HCL 10 MG in 0.9 % SODIUM CHLORIDE 100 ml 100 ML 306 MG IVPB (17:16)
[2021-12-29] MEDS: cefTRIAXone 1 GM in 0.9 % SODIUM CHLORIDE Mini-bag 100 ML IVPB (17:41)
[2021-12-29] MEDS: POTASSIUM BICARB 25 MEQ EFFERVESCENT TAB 50 MEQ PO (17:48)
[2021-12-29 18:38] LABS: Ethanol* < 0.01 % (0.01-0.03)
[2021-12-29 22:07] LABS: C.Difficile Negative (Negative)
--- NOTE | 2021-12-29 22:16 | P.IMHP_ITS ---
Hospitalist- H&P: HPI History of Present Illness Time Seen by Provider: 21:00 Date Seen: 12/29/21 Chief complaint: Diarrhea for past 2 months, now orthostatic Narrative: Katherine Moe is a 66 year old woman with a 2 month history of diarrhea who over the course of the last week has noted lightheadedness and dizziness when she stands or moves too quickly. For while was having 10-15 episodes per day. More recently the frequency has decreased. She tells me that today she has already had 6 such episodes. Has not had blood per rectum. Has not had melena. Denies fevers or rigors. At times has sweats during the night particularly over the last few days. Denies dysuria, urgency, frequency, hematuria. Does not have nausea per se. Has had a nagging cough for the last several days. Was seen in the emergency department at [facility] for this on the 26 of December and was tested negative for COVID-19 and chest x-ray was unremarkable save some mild reticular changes, and white blood cell count was normal. Did inform them of her diarrhea at that time and they performed stool studies which were reported to her as negative, included in their study she tells us they did do C difficile testing. Has not had any antibiotics over the last several months. Has had decreased oral intake from food as well as liquids. Trying to keep up with the liquids such as drinking water, Gatorade, watered down 7 up, watered down yue severino. Has had minimal food intake for the last 7 days. Also over the last several days she is noted orthostasis. She becomes shaky, wobbly, lightheaded. She attempted to get out of bed this afternoon and fell backward onto her bed. She decided at that time that she needed to come in for assessment once again. Her last colonoscopy was 5 years ago. She tells me that they called her the polyp Art. She was supposed to have a repeat colonoscopy 2 years from that time, 3 years ago, but because of COVID restrictions she did not have a colonoscopy then and nor has she had 1 since. She is overdue on her surveill ance colonoscopy by 3 years. Review of Systems Status of ROS: Reports: 10 or more systems reviewed and unremarkable except as noted in History and below [facility] Medical History Coronary artery disease Degenerative disc disease Diverticulosis Essential hypertension Hepatic steatosis Hiatal hernia History of 2019 novel coronavirus disease (COVID-19) History of colon polyps History of tobacco use Hyperlipidemia Kidney stone Mild asthma Obesity Pulmonary nodule Surgical History Status post coronary artery bypass with three autogenous grafts Status post primary angioplasty with coronary stent Social History Smoking Status: Former smoker What tobacco products do you use: cigarettes Years smoked: 40 Smoking quit date/years: <= 15 years ago Do you use any of these nicotine containing products: None Second hand tobacco smoke exposure: Yes How often do you have a drink containing alcohol: never How often do you have six or more drinks on one occasion: Never AUDIT-C Alcohol total score: 0 Non-prescribed substance use: denies use service: No Meds Home Medications and Allergies Home Medications Medication Instructions Recorded Confirmed Type acetaminophen 325 mg capsule 650 mg PO Q6H PRN 12/29/21 12/29/21 History albuterol sulfate 90 mcg/actuation 1 inh inhalation Q4-6H PRN 12/29/21 12/29/21 History aerosol inhaler amlodipine 5 mg tablet 5 mg PO DAILY 12/29/21 12/29/21 History aspirin 81 mg tablet,delayed 81 mg PO DAILY 12/29/21 12/29/21 History release (Adult Aspirin Regimen) atorvastatin 80 mg tablet 80 mg PO DAILY 12/29/21 12/29/21 History budesonide-formoterol HFA 160 2 inh inhalation BID 12/29/21 12/29/21 History mcg-4.5 mcg/actuation aerosol inhaler cetirizine 10 mg tablet 10 mg PO DAILY PRN 12/29/21 12/29/21 History cholecalciferol (vitamin D3) 25 25 mcg PO DAILY 12/29/21 12/29/21 History mcg (1,000 unit) capsule ezetimibe 10 mg tablet 10 mg PO DAILY 12/29/21 12/29/21 History metoprolol succinate 25 mg 25 mg PO DAILY 12/29/21 12/29/21 History tablet,extended release 24 hr nitroglycerin 0.4 mg sublingual 0.4 mg sublingual Q5-15M PRN 12/29/21 12/29/21 History tablet (Nitrostat) omeprazole 20 mg tablet,delayed 20 mg PO DAILY 12/29/21 12/29/21 History release Allergies Allergy/AdvReac Type Severity Reaction Status Date / Time pseudoephedrine Allergy Intermediate Hives Verified 12/29/21 13:38 [From Sudafed] sulfamethoxazole Allergy Intermediate Hives Verified 12/29/21 13:38 [From Bactrim] trimethoprim [From Bactrim] Allergy Intermediate Hives Verified 12/29/21 13:38 Exam Narrative: Exam Narrative: Appears tired. No acute distress. Alert, oriented to self, place, time, situation. Friendly, cooperative. Anxious. Articulate. Mood and affect are congruent. Hearing and vision are grossly normal. Does not have icterus or jaundice. Dry buccal mucosa. Dentition in fair repair. Midline trachea. Normal thyroid. No JVD, hepatojugular reflux, or carotid bruits. Lungs for the most part are clear to auscultation save some very fine end ins piratory rales bibasilarly. Certainly has no wheezing or rhonchi. Chest wall excursions are full. Heart tones with regular rhythm, normal S1-S2. Soft systolic murmur left lower sternal border. No gallop or rub. Abdomen with active bowel sounds, soft, nontender. Extremities without edema. Skin is warm, dry, intact. No rashes, petechiae, cyanosis. Independent transfer, station, and gait. Moves slowly. States she has lightheadedness if she moves too quickly. No focal motor neurologic deficits. Cranial nerves 3-12 are grossly normal. No obvious tremor, asterixis, or ataxia. Const: Vital Signs, click to edit/add: Vital Signs - 24 hr 12/29/21 13:40 12/29/21 17:56 12/29/21 14:00 Temperature 98.3 F 98.1 F Pulse Rate [Pulse Oximeter] 93 76 Respiratory Rate 20 18 Blood Pressure [Le ft Upper Arm] 129/86 135/82 Pulse Oximetry 97 96 Oxygen Delivery Me thod Room Air Room Air 12/29/21 14:30 12/29/21 15:00 12/29/21 15:30 Temperature Pulse Rate [Pulse Oximeter] 67 71 Respiratory Rate 18 19 Blood Pressure [Le ft Upper Arm] 140/83 H 133/75 137/79 Pulse Oximetry 97 96 96 Oxygen Delivery Me thod Room Air Room Air Room Air 12/29/21 16:00 12/29/21 16:09 12/29/21 16:11 Temperature Pulse Rate [Pulse Oximeter] 72 70 76 Respiratory Rate 20 22 22 Blood Pressure [Le ft Upper Arm] 139/80 132/94 H 132/84 Pulse Oximetry 95 96 97 Oxygen Delivery Me thod Room Air Room Air Room Air 12/29/21 18:46 12/29/21 17:02 12/29/21 18:00 Temperature Pulse Rate [Pulse Oximeter] 90 73 82 Respiratory Rate 32 H 25 H 23 Blood Pressure [Le ft Upper Arm] 146/84 H 103/86 112/55 L Pulse Oximetry 97 97 98 Oxygen Delivery Me thod Room Air Room Air Room Air Hospitalist - H&P: Result Labs Labs: Short CBC 12/29/21 Range/Units 14:47 WBC 6.84 (4.50-11.00) K/uL Hgb 13.2 (12.0-16.0) gm/dL Hct 39.8 (33.0-51.0) % Plt Count 144 (140-440) K/uL BMP 12/29/21 14:47 Sodium 133 L Potassium 3.2 L Chloride 100 Carbon Dioxide 23 BUN 6 L Creatinine 0.7 Glucose 122 H Calcium 8.6 Cardiac Enzymes 12/29/21 Range/Units 14:47 Troponin I < 0.01 L (0.01-0.04) ng/mL Liver Function 12/29/21 Range/Units 14:47 Total Bilirubin 1.2 (0.1-1.5) mg/dL Direct Bilirubin 0.6 H (0.0-0.5) mg/dL AST 91 H (12-35) U/L ALT 65 H (4-35) U/L Alkaline Phosphatase 130 (40-150) U/L Albumin 3.8 (3.3-5.0) g/dL Urine 12/29/21 Range/Units 16:36 Urine Color [place] A (Yellow) Urine Appearance Cloudy A (Clear) Urine pH 6.5 (5.0-8.5) Ur Specific [place] 1.010 (1.000-1.030) Urine Protein 2+ A (Negative) Urine Glucose (UA) Negative (Negative) ECG Attestation: I personally reviewed and interpreted this ECG as follows: ECG interpretation date: 12/29/21 ECG interpretation time: 21:00 Prior ECG tracings: available for review Interpretation: Normal sinus rhythm, rate 69. Left bundle branch block, old. No ischemic or infarct pattern. Imaging Chest x-ray: Attestation: I have reviewed the pertinent imaging results. Radiologist's impression: No acute cardiopulmonary abnormality. No sign of pneumonia. CT scan - abdomen: Attestation: I have reviewed the pertinent imaging results. Radiologist's impression: 1. No acute abdominal or pelvic abnormalities. 2. Hepatic steatosis. 3. Small hiatal hernia. 4. Scattered colonic diverticula without evidence of diverticulitis. 5. Multilevel degenerative changes throughout the spine. Mild grade 1 anterolisthesis L4 on L5. Assessment and Plan Assessment and plan (1) Dehydration: Status: Acute (2) Orthostatic dizziness: Status: Acute (3) Weakness: Status: Acute (4) Diarrhea: Problem comment: 2 months Status: Acute Assessment and Plan: Etiology of the diarrhea is not yet determined. Fact that she has had polyps in the past and was advised to have repeat colonoscopy 2 years from the 1st time that she last had a colonoscopy is certainly concerning. Consider neoplastic etiology. Microscopic or eosinophilic colitis is certainly a possibility as well. She still has her gallbladder. No history of pancreatitis. (5) Hypokalemia due to excessive gastrointestinal loss of potassium: Status: Acute Assessment and Plan: 1. Replace with oral potassium. 2. Monitor level. (6) Hypomagnesemia: Status: Acute Assessment and Plan: 1. Replace with IV magnesium. I am worried that oral magnesium would cause her to have more diarrhea. 2. Monitor level. (7) High transaminase levels: Status: Acute Assessment and Plan: 1. Etiology not yet determined. Differential diagnosis includes hepatic steatosis, statin induced elevation, hepatitis, secondary to the process as cause of diarrhea, etc. 2. Recheck levels in the morning after rehydration. 3. Consider hepatitis panel. (8) Cough: Status: Acute Assessment and Plan: 1. Known to have asthma. Could be causing the cough although she does have any wheezing at this time. Consider gastroesophageal reflux disease induced. Denies upper respiratory tract symptoms per se including no nasal discharge. Reticular findings on recent chest x-ray are not corroborated by our current CT scan. (9) Bacteriuria with pyuria: Status: Acute (10) Proteinuria: Status: Acute Plan 1. Admit to observation. 2. IV fluid rehydration efforts, monitoring orthostatic blood pressures and pulses in addition to other vitals. 3. Telemetry overnight to make certain we are not missing a dysrhythmia contributing to her lightheadedness. 4. Will ask Physical therapy, Occupational therapy, dietitian to see the patient in consultation. 5. Will recheck her stool studies while she is here. As a part of this will check for C diff. 6. Blood cultures obtained. Urine culture obtained. 7. Initiate empiric treatment for possible urinary tract infection with ceftriaxone 1 g IV daily while in hospital. 8. Recommended that she have close follow-up with her primary care physician in regard to her multiple concerns. 9. Answered patient's questions to her satisfaction. She is agreeable to above stated plans and recommendations.
[2021-12-29] MEDS: LACTOBACILLUS ACIDOPHILUS 1 TABLET 2 TAB PO (22:19)
[2021-12-29] MEDS: POTASSIUM BICARB 25 MEQ EFFERVESCENT TAB PO (22:20)
[2021-12-29 23:05] LABS: Lipase* 85 U/L (23-300)
--- NOTE | 2021-12-29 23:45 | PC.NURSE ---
Pt pleasant and cooperative. watery stools x 1 on shift. Precautions initiated. C-Diff culture negative. Denies pain, N/V.
[2021-12-30] VITALS (10 sets, daily range): BP systolic 105–156; BP diastolic 57–99; PULSE 78–125; RESP 18–24; TEMP 36.6–37.3; O2SAT 92–96
[2021-12-30 00:18] LABS: CDIFFEPI 027 PRESUMPTIVE NEGATIVE (Negative)
[2021-12-30] MEDS: POTASSIUM BICARB 25 MEQ EFFERVESCENT TAB PO (00:52)
--- NOTE | 2021-12-30 06:19 | PC.NURSE ---
Shift note 23-07: Pt up to BR w/ SBA, no c/o dizziness or lightheadedness w/ any changes in position, no c/o pain. 2 small loose stools, absent of blood. Voiding w/o any c/o s/s of UTI.
[2021-12-30 07:07] LABS: Hematocrit 38.4 % (33.0-51.0); Hemoglobin* 12.7 gm/dL (12.0-16.0); Mean Corpuscular HGB Conc 33 gm/dL (32-36); Mean Corpuscular Hemoglobin 32 pg (26-34); Mean Corpuscular Volume 98 fL (80-100); Platelet Count* 134 K/uL (140-440); Red Blood Count 3.94 m/uL (4.00-5.20)
[2021-12-30 07:21] LABS: Slide Review Reflex No
[2021-12-30 07:34] LABS: Albumin* 3.8 g/dL (3.3-5.0); Potassium* 3.6 mmol/L (3.6-5.1); Sodium* 132 mmol/L (135-149)
[2021-12-30 07:37] LABS: Alanine Aminotransferase* 67 U/L (4-35); Alkaline Phosphatase* 134 U/L (40-150); Aspartate Amino Transferase* 112 U/L (12-35); Bilirubin Direct* 0.6 mg/dL (0.0-0.5); Magnesium* 2.3 mg/dL (1.5-2.6); Total Protein* 6.7 g/dL (6.0-8.3)
[2021-12-30] MEDS: LACTOBACILLUS ACIDOPHILUS 1 TABLET 2 TAB PO ×2 (07:51→19:48)
[2021-12-30] MEDS: OMEPRAZOLE 20 MG CAPSULE DR PO (07:51)
--- NOTE | 2021-12-30 08:35 | PC.NURSE ---
shift note: pt ortho BP's: 136/85 p=97 (laying); 129/82 p=103 (sitting); 127/81 p=125 (standing). Pt stated she became dizzy & shaky during sitting then standing.
[2021-12-30 08:53] LABS: Chloride* 99 mmol/L (96-114)
[2021-12-30 08:56] LABS: Creatinine* 0.8 mg/dL (0.5-1.5); Estimated Glomerular Filt Rate 80 ml/min
[2021-12-30 08:57] LABS: Blood Urea Nitrogen* 7 mg/dL (7-30); Calcium* 8.1 mg/dL (8.4-10.6); Carbon Dioxide* 22 mmol/L (20-32); Glucose* 113 mg/dL (60-115)
[2021-12-30] MEDS: ASPIRIN 81 MG TABLET EC PO (09:07)
[2021-12-30] MEDS: cefTRIAXone 2 GM in 0.9 % SODIUM CHLORIDE Mini-bag 100 ML IVPB (09:07)
--- NOTE | 2021-12-30 09:23 | NUTR.NU ---
RDN with MD nutrition consult for diarrhea > 3 days. RDN discussed nutrition consult with MD at IDT (morning meeting). MD recommended RDN to hold off on nutrition assessment at this time until source/etiology of diarrhea can be determined. RDN will continue to monitor.
--- NOTE | 2021-12-30 11:31 | PM.IMPN1 ---
Progress Note: A&P Assessment and plan (1) Gram-negative bacteremia: Problem details: I adjusted her Rocephin to be 2 g Q 24 hours, starting this morning. Awaiting urine culture and sensitivities from the blood culture. Supportive care likely from her urinary tract infection Status: Acute (2) Bacteriuria with pyuria: Problem details: Covered with Rocephin, awaiting culture results Status: Acute Assessment and Plan: (3) High transaminase levels: Problem details: Hep panel pending. Nothing obvious on CT abdomen pelvis. Likely steatohepatitis. History of heavy alcohol use, no further recent use u/s ordered, trend labs. Status: Acute (4) Orthostatic dizziness: Problem details: IV fluids, clear fluids by p.o.. Continue to manage and support. Control output with Imodium Status: Acute (5) Hypomagnesemia: Problem details: Replaced and improved Status: Acute (6) Hypokalemia due to excessive gastrointestinal loss of potassium: Problem details: Replaced and improved Status: Acute (7) Diarrhea: Problem details: 2 months Colonoscopy either outpatient or inpatient, depending on clinical course Stool cultures pending Status: Acute (8) Weakness: Status: Acute Subjective Date Seen: 12/30/21 Interval history: Daily Progress Note - Hospital Medicine Day #:2 CC: Severe diarrhea, UTI, presyncope, positive blood cultures OVERNIGHT UPDATES FROM STAFF & MED, LAB, IMAGING UPDATES Is a 66-year-old who has not been in her baseline state of health over the last 3 months. She has been dealing with chronic daily diarrhea. In recent days it has gotten worse and she presents with dizziness and weakness. Please see the H&P for further detail Overnight her blood cultures were positive for Gram-negative bacillus. This is likely bladder as a source. She is on Rocephin as antibiotics and getting fluids. CBC is stable. She is not anemic. Has no white count. Platelet count is a bit low at 134 Sodium has drifted down to 132 from 133 BUN and creatinine are stable. Magnesium is normal now after replacement Direct bili is marginally elevated at 0.6 AST and ALT are about the same mildly elevated Alk-phos is normal CRP is up trending 1.9-4 Urine indicated a urine tract infection with white blood cells and positive blood and positive leukocyte esterase C diff negative Hep panel pending Ova and parasites pending One blood culture as described above growing Gram-negative rods Stool culture pending Urine culture pending Two view chest x-ray last night in the ED negative. CT abdomen pelvis from last night 1. No acute abdominal or pelvic abnormalities. 2. Hepatic steatosis. 3. Small hiatal hernia. 4. Scattered colonic diverticula without evidence of diverticulitis. Review of Systems: Still dizzy upon ambulation See subjective Cardiac: No new chest pain/pressure/palpitations. Respiratory: no new dyspnea. GI: No abdominal bloating Objective: Vitals: see above Lungs: Clear. Cardiac: S1S2. Disposition/Potential discharge - Likely to return to previous living situation. Total time is 35 minutes with greater than 50% spent in counseling and coordination of care. Exam Const: Vital Signs, click to edit/add: Vital Signs - 24 hr 12/29/21 13:40 12/29/21 17:56 12/29/21 14:00 Temperature 98.3 F 98.1 F Pulse Rate Pulse Rate [Pulse Oximeter] 93 76 Pulse Rate [Right Pulse Oximeter] Pulse Rate [orthos tatic lying Right Brachial] Pulse Rate [orthos tatic sitting Righ t Brachial] Pulse Rate [orthos tatic standing Rig ht Brachial] Respiratory Rate 20 18 Blood Pressure [Le ft Arm] Blood Pressure [Le ft Upper Arm] 129/86 135/82 Blood Pressure [or thostatic lying Ri ght Arm] Blood Pressure [or thostatic sitting Right Arm] Blood Pressure [or thostatic standing Right Arm] Pulse Oximetry 97 96 Oxygen Delivery Me thod Room Air Room Air 12/29/21 14:30 12/29/21 15:00 12/29/21 15:30 Temperature Pulse Rate Pulse Rate [Pulse Oximeter] 67 71 Pulse Rate [Right Pulse Oximeter] Pulse Rate [orthos tatic lying Right Brachial] Pulse Rate [orthos tatic sitting Righ t Brachial] Pulse Rate [orthos tatic standing Rig ht Brachial] Respiratory Rate 18 19 Blood Pressure [Le ft Arm] Blood Pressure [Le ft Upper Arm] 140/83 H 133/75 137/79 Blood Pressure [or thostatic lying Ri ght Arm] Blood Pressure [or thostatic sitting Right Arm] Blood Pressure [or thostatic standing Right Arm] Pulse Oximetry 97 96 96 Oxygen Delivery Me thod Room Air Room Air Room Air 12/29/21 16:00 12/29/21 16:09 12/29/21 16:11 Temperature Pulse Rate Pulse Rate [Pulse Oximeter] 72 70 76 Pulse Rate [Right Pulse Oximeter] Pulse Rate [orthos tatic lying Right Brachial] Pulse Rate [orthos tatic sitting Righ t Brachial] Pulse Rate [orthos tatic standing Rig ht Brachial] Respiratory Rate 20 22 22 Blood Pressure [Le ft Arm] Blood Pressure [Le ft Upper Arm] 139/80 132/94 H 132/84 Blood Pressure [or thostatic lying Ri ght Arm] Blood Pressure [or thostatic sitting Right Arm] Blood Pressure [or thostatic standing Right Arm] Pulse Oximetry 95 96 97 Oxygen Delivery Me thod Room Air Room Air Room Air 12/29/21 18:46 12/29/21 17:02 12/29/21 18:00 Temperature Pulse Rate Pulse Rate [Pulse Oximeter] 90 73 82 Pulse Rate [Right Pulse Oximeter] Pulse Rate [orthos tatic lying Right Brachial] Pulse Rate [orthos tatic sitting Righ t Brachial] Pulse Rate [orthos tatic standing Rig ht Brachial] Respiratory Rate 32 H 25 H 23 Blood Pressure [Le ft Arm] Blood Pressure [Le ft Upper Arm] 146/84 H 103/86 112/55 L Blood Pressure [or thostatic lying Ri ght Arm] Blood Pressure [or thostatic sitting Right Arm] Blood Pressure [or thostatic standing Right Arm] Pulse Oximetry 97 97 98 Oxygen Delivery Me thod Room Air Room Air Room Air 12/29/21 21:01 12/29/21 21:01 12/30/21 00:45 Temperature 98.5 F Pulse Rate 83 Pulse Rate [Pulse Oximeter] Pulse Rate [Right Pulse Oximeter] 85 Pulse Rate [orthos tatic lying Right Brachial] Pulse Rate [orthos tatic sitting Righ t Brachial] Pulse Rate [orthos tatic standing Rig ht Brachial] Respiratory Rate 18 18 Blood Pressure [Le ft Arm] Blood Pressure [Le ft Upper Arm] Blood Pressure [or thostatic lying Ri ght Arm] Blood Pressure [or thostatic sitting Right Arm] Blood Pressure [or thostatic standing Right Arm] Pulse Oximetry 96 96 Oxygen Delivery Wy thod Room Air Room Air 12/30/21 00:45 12/30/21 00:45 12/30/21 05:00 Temperature 99.1 F 98.4 F Pulse Rate Pulse Rate [Pulse Oximeter] Pulse Rate [Right Pulse Oximeter] 82 82 78 Pulse Rate [orthos tatic lying Right Brachial] Pulse Rate [orthos tatic sitting Righ t Brachial] Pulse Rate [orthos tatic standing Rig ht Brachial] Respiratory Rate 20 20 20 Blood Pressure [Le ft Arm] 156/79 H 147/93 H Blood Pressure [Le ft Upper Arm] Blood Pressure [or thostatic lying Ri ght Arm] Blood Pressure [or thostatic sitting Right Arm] Blood Pressure [or thostatic standing Right Arm] Pulse Oximetry 96 95 Oxygen Delivery Me thod Room Air Room Air 12/30/21 07:50 12/30/21 08:37 Temperature 97.8 F Pulse Rate Pulse Rate [Pulse Oximeter] Pulse Rate [Right Pulse Oximeter] 97 Pulse Rate [orthos tatic lying Right Brachial] 97 Pulse Rate [orthos tatic sitting Righ t Brachial] 103 H Pulse Rate [orthos tatic standing Rig ht Brachial] 125 H Respiratory Rate 24 Blood Pressure [Le ft Arm] 136/85 Blood Pressure [Le ft Upper Arm] Blood Pressure [or thostatic lying Ri ght Arm] 136/85 Blood Pressure [or thostatic sitting Right Arm] 129/82 Blood Pressure [or thostatic standing Right Arm] 127/81 Pulse Oximetry 92 Oxygen Delivery Me thod Room Air Labs Labs: Laboratory Results - last 24 hr 12/29/21 12/29/21 12/29/21 14:47 14:47 14:47 WBC 6.84 RBC 4.12 Hgb 13.2 Hct 39.8 MCV 97 MCH 32 MCHC 33 RDW Coeff of [place] 13.5 Plt Count 144 Neut % (Auto) 82.5 H Lymph % (Auto) 8.2 L [place] % (Auto) 7.7 Eos % (Auto) 0.9 Baso % (Auto) 0.3 Neut # (Auto) 5.60 Lymph # (Auto) 0.60 L [place] # (Auto) 0.50 Eos # (Auto) 0.06 Baso # (Auto) 0.02 Abs Immat Gran (auto) 0.03 D-Dimer Quant (PE/DVT) 0.38 Sodium 133 L Potassium 3.2 L Chloride 100 Carbon Dioxide 23 BUN 6 L Creatinine 0.7 Estimated Creat Clear 50.41 Estimated GFR 94 Glucose 122 H Venous Lactic Acid (Serial Order) Calcium 8.6 Magnesium 1.4 L Total Bilirubin 1.2 Direct Bilirubin 0.6 H AST 91 H ALT 65 H Alkaline Phosphatase 130 Troponin I < 0.01 L C-Reactive Protein 1.9 H NT-Pro-B Natriuret Pep 454 H Total Protein 6.8 Albumin 3.8 Lipase 85 Urine Color Urine Appearance Urine pH Ur Specific [place] Urine Protein Urine Glucose (UA) Urine Ketones Urine Blood Urine Nitrite Urine Bilirubin Urine Urobilinogen Ur Leukocyte Esterase Urine RBC Urine WBC Ur Squamous Epith Cells Urine Bacteria Stl C.difficile Tox PCR Ethyl Alcohol < 0.[address] C. diff Tox Epid 027 SARS-CoV-2 (PCR) POC Creatinine POC Troponin I 12/29/21 12/29/21 12/29/21 14:49 14:49 16:36 WBC RBC Hgb Hct MCV MCH MCHC RDW Coeff of [place] Plt Count Neut % (Auto) Lymph % (Auto) [place] % (Auto) Eos % (Auto) Baso % (Auto) Neut # (Auto) Lymph # (Auto) [place] # (Auto) Eos # (Auto) Baso # (Auto) Abs Immat Gran (auto) D-Dimer Quant (PE/DVT) Sodium Potassium Chloride Carbon Dioxide BUN Creatinine Estimated Creat Clear Estimated GFR Glucose Venous Lactic Acid (Serial Order) Calcium Magnesium Total Bilirubin Direct Bilirubin AST ALT Alkaline Phosphatase Troponin I C-Reactive Protein NT-Pro-B Natriuret Pep Total Protein Albumin Lipase Urine Color Frida A Urine Appearance Cloudy A Urine pH 6.5 Ur Specific [place] 1.010 Urine Protein 2+ A Urine Glucose (UA) Negative Urine Ketones Negative Urine Blood 1+ A Urine Nitrite Negative Urine Bilirubin Negative Urine Urobilinogen 2.0 A Ur Leukocyte Esterase 1+ A Urine RBC 25-50 A Urine WBC 50-100 A Ur Squamous Epith Cells Moderate A Urine Bacteria Many A Stl C.difficile Tox PCR Ethyl Alcohol St C. diff Tox Epid 027 SARS-CoV-2 (PCR) POC Creatinine 0.7 POC Troponin I 0.01 12/29/21 12/29/21 12/30/21 20:22 Unknown 06:42 WBC 5.90 RBC 3.94 L Hgb 12.7 Hct 38.4 MCV 98 MCH 32 MCHC 33 RDW Coeff of [place] Plt Count 134 L Neut % (Auto) Lymph % (Auto) [place] % (Auto) Eos % (Auto) Baso % (Auto) Neut # (Auto) Lymph # (Auto) [place] # (Auto) Eos # (Auto) Baso # (Auto) Abs Immat Gran (auto) D-Dimer Quant (PE/DVT) Sodium Potassium Chloride Carbon Dioxide BUN Creatinine Estimated Creat Clear Estimated GFR Glucose Venous Lactic Acid (Serial Order) Calcium Magnesium Total Bilirubin Direct Bilirubin AST ALT Alkaline Phosphatase Troponin I C-Reactive Protein NT-Pro-B Natriuret Pep Total Protein Albumin Lipase Urine Color Urine Appearance Urine pH Ur Specific [place] Urine Protein Urine Glucose (UA) Urine Ketones Urine Blood Urine Nitrite Urine Bilirubin Urine Urobilinogen Ur Leukocyte Esterase Urine RBC Urine WBC Ur Squamous Epith Cells Urine Bacteria Stl C.difficile Tox PCR Negative Ethyl Alcohol St C. diff Tox Epid 027 PRESUMPTIVE NEGATIVE SARS-CoV-2 (PCR) Negative SARS-CoV-2 POC Creatinine POC Troponin I 12/30/21 06:42 WBC RBC Hgb Hct MCV MCH MCHC RDW Coeff of [place] Plt Count Neut % (Auto) Lymph % (Auto) [place] % (Auto) Eos % (Auto) Baso % (Auto) Neut # (Auto) Lymph # (Auto) [place] # (Auto) Eos # (Auto) Baso # (Auto) Abs Immat Gran (auto) D-Dimer Quant (PE/DVT) Sodium 132 L Potassium 3.6 Chloride 99 Carbon Dioxide 22 BUN 7 Creatinine 0.8 Estimated Creat Clear 46.50 Estimated GFR 80 Glucose 113 Venous Lactic Acid (Serial Order) Calcium 8.1 L Magnesium 2.3 Total Bilirubin 1.0 Direct Bilirubin 0.6 H AST 112 H ALT 67 H Alkaline Phosphatase 134 Troponin I C-Reactive Protein 4.0 H NT-Pro-B Natriuret Pep Total Protein 6.7 Albumin 3.8 Lipase Urine Color Urine Appearance Urine pH Ur Specific [place] Urine Protein Urine Glucose (UA) Urine Ketones Urine Blood Urine Nitrite Urine Bilirubin Urine Urobilinogen Ur Leukocyte Esterase Urine RBC Urine WBC Ur Squamous Epith Cells Urine Bacteria Stl C.difficile Tox PCR Ethyl Alcohol St C. diff Tox Epid 027 SARS-CoV-2 (PCR) POC Creatinine POC Troponin I
[2021-12-30 12:12] LABS: Gamma Glutamyl Transpeptidase* 502 U/L (8-55); Lipase* 84 U/L (23-300)
[2021-12-30] MEDS: 0.9 % SODIUM CH + KCL 20 mEq/L 1,000 ML 100 ML IV ×2 (14:19→22:55)
--- NOTE | 2021-12-30 15:00 | CRLHL7_ITS ---
For Patients: As a result of the Century Cures Act, medical imaging exams and procedure reports are released immediately into your electronic medical record. You may view this report before your referring provider. If you have questions, please contact your health care provider. INDICATION: ? PASH vs cirrhosis TECHNIQUE: Ultrasound abdomen limited. Sonographic images of the right upper quadrant were obtained using ortiz-scale and color Doppler images. COMPARISON: None. FINDINGS: Liver: Diffusely increased echogenicity with obscuration of the portal triads. No suspicious masses. No intrahepatic biliary dilation. Gallbladder: No stones or sludge. Normal wall thickness. No pericholecystic fluid. Common bile duct: 5 mm. Pancreas: Unremarkable. Right kidney: Normal in size. Normal echotexture and cortex. No suspicious masses, stones, or hydronephrosis. Vasculature: Proximal abdominal aorta and IVC are unremarkable. IMPRESSION: 1. Hepatic steatosis. 2. No other sonographic abnormality in the right upper quadrant. Dictated by Geremias Taylor MD @ 12/30/2021 4:32:56 PM (Electronically Signed)
--- NOTE | 2021-12-30 19:33 | PC.NURSE ---
shift note: vss stable. pt denies pain. No BM reported. IV restarted in rt hand. LS clr. pt became dizzy and sob with activity.
[2021-12-30] MEDS: ALBUTEROL INHALER 1 PUFF IH (19:57)
[2021-12-31 03:00] VITALS: BP 172/100; PULSE 96; RESP 20; TEMP 37; O2SAT 93
--- NOTE | 2021-12-31 05:18 | PC.NURSE ---
[id number] Pt rested well during night, denies pain, N/V, lightheaded/dizziness, up to br with SBA due to help with IV pole. Stools becoming more soft.
[2021-12-31 07:16] LABS: HCO3 VBG 24 mmol/L (21-28); Ionized Calcium* 1.07 mmol/L (1.11-1.30); Lactate* 0.7 mmol/L (0.5-1.9); PCO2 VBG 35 mmHG (40-50); PO2 VBG 96.5 mmHG (25-47); pH VBG 7.447 (7.32-7.43)
[2021-12-31 07:38] LABS: Hematocrit 33.6 % (33.0-51.0); Hemoglobin* 11.1 gm/dL (12.0-16.0); Mean Corpuscular HGB Conc 33 gm/dL (32-36); Mean Corpuscular Hemoglobin 33 pg (26-34); Mean Corpuscular Volume 99 fL (80-100); Platelet Count* 107 K/uL (140-440); Red Blood Count 3.41 m/uL (4.00-5.20); White Blood Count* 3.71 K/uL (4.50-11.00)
[2021-12-31 07:45] VITALS: BP 144/77; PULSE 76; RESP 18; TEMP 36.9; O2SAT 96
[2021-12-31 07:53] LABS: Albumin* 2.9 g/dL (3.3-5.0); Chloride* 107 mmol/L (96-114); Sodium* 134 mmol/L (135-149)
[2021-12-31 07:56] LABS: Aspartate Amino Transferase* 83 U/L (12-35); Carbon Dioxide* 22 mmol/L (20-32); Creatinine* 0.6 mg/dL (0.5-1.5); Estimated Glomerular Filt Rate 98 ml/min; Prothrombin Time 14.7 Seconds; Slide Review Reflex No
[2021-12-31 07:57] LABS: Alkaline Phosphatase* 88 U/L (40-150); Blood Urea Nitrogen* 8 mg/dL (7-30); Calcium* 7.6 mg/dL (8.4-10.6); Gamma Glutamyl Transpeptidase* 386 U/L (8-55); Glucose* 111 mg/dL (60-115); Lipase* 126 U/L (23-300); Magnesium* 1.8 mg/dL (1.5-2.6); Total Protein* 5.5 g/dL (6.0-8.3)
[2021-12-31] MEDS: LACTOBACILLUS ACIDOPHILUS 1 TABLET 2 TAB PO ×3 (08:09→18:05)
[2021-12-31] MEDS: cefTRIAXone 2 GM in 0.9 % SODIUM CHLORIDE Mini-bag 100 ML IVPB (08:09)
[2021-12-31] MEDS: OMEPRAZOLE 20 MG CAPSULE DR PO (08:09)
[2021-12-31] MEDS: 0.9 % SODIUM CH + KCL 20 mEq/L 1,000 ML 100 ML IV ×2 (08:10→20:04)
[2021-12-31] MEDS: LOPERAMIDE HCL 2 MG CAPSULE PO ×4 (08:26→20:29)
[2021-12-31 08:42] LABS: Potassium* 3.8 mmol/L (3.6-5.1)
[2021-12-31 08:43] LABS: Alanine Aminotransferase* 57 U/L (4-35); Bilirubin Total* 0.7 mg/dL (0.1-1.5)
[2021-12-31] MEDS: ASPIRIN 81 MG TABLET EC PO (09:54)
[2021-12-31 11:00] VITALS: BP 147/64; PULSE 81; RESP 18; TEMP 36.9; O2SAT 96
[2021-12-31] MEDS: AMLODIPINE 5 MG TABLET PO (12:10)
[2021-12-31] MEDS: METOPROLOL SUCCINATE (XL) 25 MG TAB PO (12:10)
--- NOTE | 2021-12-31 14:19 | PM.IMPN1 ---
Progress Note: A&P Assessment and plan (1) Gram-negative bacteremia: Problem details: She is on Rocephin 2 g Q 24 hours, each a.m.. We will continue this for another 24 hours. IV redo blood cultures today and I would like to see those remain negative. The source is her bladder infection. Status: Acute (2) Bacteriuria with pyuria: Problem details: E coli, same organism that is growing in her urine. Status: Acute (3) High transaminase levels: Problem details: Hep panel pending. Ultrasound confirms steatohepatitis. LFTs down trending. Patient said that she has cut back on her alcohol significantly over the last year. Status: Acute (4) Hypomagnesemia: Problem details: Replaced and improved Status: Acute (5) Hypokalemia due to excessive gastrointestinal loss of potassium: Problem details: Replaced and improved Status: Acute (6) Diarrhea: Problem details: 2 months Colonoscopy either outpatient or inpatient, depending on clinical course Stool cultures pending Scheduled Imodium. Status: Acute (7) Weakness: Problem details: Bacteremic, UTI, chronic diarrhea with low Mag and low potassium. Status: Acute Subjective Date Seen: 12/31/21 Interval history: Daily Progress Note - Hospital Medicine Day #: 3 CC: Severe diarrhea, UTI, presyncope, positive blood cultures OVERNIGHT UPDATES FROM STAFF & MED, LAB, IMAGING UPDATES Still feels weak and overall ?crappy ? - continues to have frequent stools. Nonbloody. Urgent. No new fevers. Not hungry. Mildly thirsty. Achy. Blood pressure has responded nicely to holding antihypertensives and fluid bolus and control of the underlying infection. I restarted her metoprolol and amlodipine. CBC reveals mild leukopenia. Hemoglobin went from 12.7-11.1 Platelet count has dropped from 134-107 Sodium has improved The rest of her Chem panel is reassuring renal function looks improved. Calcium is a bit low at 1.07 LFTs are down trending as is GGT. Ultrasound shows hepatic steatosis. CRP only went up 1 point. 4.0-5.0. Abdomen is down a bit 2.9 TSH lipase are C diff negative Hepatitis panel pending Pending ova and parasite Abdominal ultrasound 1. Hepatic steatosis. 2. No other sonographic abnormality in the right upper quadrant. Blood cultures are growing E coli as is the urine culture. This E coli is resistant to ampicillin, Bactrim, gentamicin. The current ceftriaxone is sensitive. Review of Systems: Still dizzy upon ambulation See subjective Cardiac: No new chest pain/pressure/palpitations. Respiratory: no new dyspnea. GI: No abdominal bloating Objective: He looks tired. Stated age. Still laughing and cracking jokes. Vitals: see above Lungs: Clear. Cardiac: S1S2. Abdomen nonacute. Disposition/Potential discharge - Likely to return to previous living situation. Total time is 35 minutes with greater than 50% spent in counseling and coordination of care. Exam Const: Vital Signs, click to edit/add: Vital Signs - 24 hr 12/30/21 15:00 12/30/21 17:00 12/30/21 20:28 Temperature 98.2 F 98.7 F Pulse Rate Pulse Rate [Right Pulse Oximeter] 97 86 89 Respiratory Rate 18 18 18 Blood Pressure [Le ft Arm] 156/99 H 130/75 Pulse Oximetry 95 95 Oxygen Delivery Me thod Room Air Room Air 12/30/21 23:00 12/30/21 23:00 12/30/21 23:29 Temperature 98.7 F Pulse Rate 87 Pulse Rate [Right Pulse Oximeter] 89 89 Respiratory Rate 18 18 Blood Pressure [Le ft Arm] 130/75 Pulse Oximetry 95 Oxygen Delivery Me thod Room Air 12/31/21 03:00 12/31/21 07:45 12/31/21 11:00 Temperature 98.6 F 98.4 F 98.4 F Pulse Rate Pulse Rate [Right Pulse Oximeter] 96 76 81 Respiratory Rate 20 18 18 Blood Pressure [Le ft Arm] 172/100 H 144/77 H 147/64 H Pulse Oximetry 93 96 96 Oxygen Delivery Me thod Room Air Room Air Room Air Labs Labs: Laboratory Results - last 24 hr 12/31/21 12/31/21 12/31/21 06:46 06:46 06:46 WBC 3.71 L RBC 3.41 L Hgb 11.1 L Hct 33.6 MCV 99 MCH 33 MCHC 33 Plt Count 107 L INR 1.10 VBG pH VBG pCO2 VBG pO2 VBG HCO3 Sodium 134 L Potassium 3.8 Chloride 107 Carbon Dioxide 22 BUN 8 Creatinine 0.6 Estimated Creat Clear 46.50 Estimated GFR 98 Glucose 111 Lactate Calcium 7.6 L Ionized Calcium [place] Magnesium 1.8 Total Bilirubin 0.7 GGT 386 H AST 83 H ALT 57 H Alkaline Phosphatase 88 C-Reactive Protein 5.0 H Total Protein 5.5 L Albumin 2.9 L Lipase 126 TSH 12/31/21 12/31/21 06:46 06:46 WBC RBC Hgb Hct MCV MCH MCHC Plt Count INR VBG pH 7.447 H VBG pCO2 35 L VBG pO2 96.5 H VBG HCO3 24 Sodium Potassium Chloride Carbon Dioxide BUN Creatinine Estimated Creat Clear Estimated GFR Glucose Lactate 0.7 Calcium Ionized Calcium [place] 1.07 L Magnesium Total Bilirubin GGT AST ALT Alkaline Phosphatase C-Reactive Protein Total Protein Albumin Lipase TSH 1.380
[2021-12-31 14:38] LABS: Hepatitis B Core Antibody, IgM Negative (Negative); Hepatitis B Surface Antigen Negative (Negative); Hepatitis C Antibody by CIA Negative (Negative)
[2021-12-31 15:00] VITALS: BP 163/81; PULSE 70; RESP 20; TEMP 36.4; O2SAT 96
[2021-12-31 19:00] VITALS: BP 121/64; BP 138/58; BP 157/58; BP 170/101; PULSE 70; PULSE 72; PULSE 74; PULSE 83; RESP 20; TEMP 36.6; O2SAT 98
--- NOTE | 2021-12-31 20:27 | PC.NURSE ---
shift note: pt up sba to bathroom. LS clr this a.m but noted faint crkls bibasilar this ruth. vss stable. pt afeb. Pt denies pain. IV patent. Pt had 4 very small mushy loose stools throughout the day.
[2021-12-31 23:00] VITALS: BP 138/58; PULSE 70; RESP 20; TEMP 36.6; O2SAT 98
[2022-01-01 03:00] VITALS: BP 136/62; PULSE 68; RESP 20; TEMP 36.6; O2SAT 95
[2022-01-01] MEDS: 0.9 % SODIUM CH + KCL 20 mEq/L 1,000 ML 100 ML IV (04:22)
[2022-01-01 06:56] LABS: HCO3 VBG 25 mmol/L (21-28); PCO2 VBG 37 mmHG (40-50); PO2 VBG 55.2 mmHG (25-47); pH VBG 7.432 (7.32-7.43)
[2022-01-01 07:00] LABS: Hemoglobin* 11.2 gm/dL (12.0-16.0); Mean Corpuscular HGB Conc 33 gm/dL (32-36); Mean Corpuscular Hemoglobin 32 pg (26-34); Mean Corpuscular Volume 98 fL (80-100); Platelet Count* 136 K/uL (140-440); Red Blood Count 3.46 m/uL (4.00-5.20); White Blood Count* 3.12 K/uL (4.50-11.00)
--- NOTE | 2022-01-01 07:04 | PC.NURSE ---
Alert and oriented x4. On room air and satting above 90%. Vitals ar stable. denies pain. SBA of one to the bathroom. Loose stool x1 this shift; specimen sent to labs.Continues to receive abx for UTI. Urine frequency noted. Denies any concerns for now
[2022-01-01 07:05] LABS: Slide Review Reflex No
[2022-01-01 07:33] LABS: Albumin* 2.9 g/dL (3.3-5.0); Chloride* 106 mmol/L (96-114); Sodium* 135 mmol/L (135-149)
[2022-01-01 07:34] LABS: Potassium* 3.8 mmol/L (3.6-5.1)
[2022-01-01 07:36] LABS: Alkaline Phosphatase* 90 U/L (40-150); Aspartate Amino Transferase* 59 U/L (12-35); Bilirubin Total* 0.6 mg/dL (0.1-1.5); Blood Urea Nitrogen* 7 mg/dL (7-30); Carbon Dioxide* 23 mmol/L (20-32); Creatinine* 0.5 mg/dL (0.5-1.5); Estimated Glomerular Filt Rate 102 ml/min; Total Protein* 5.6 g/dL (6.0-8.3)
[2022-01-01 07:37] LABS: Alanine Aminotransferase* 47 U/L (4-35); Calcium* 8.3 mg/dL (8.4-10.6); Gamma Glutamyl Transpeptidase* 337 U/L (8-55); Glucose* 107 mg/dL (60-115); Magnesium* 1.7 mg/dL (1.5-2.6)
[2022-01-01 07:39] LABS: C Reactive Protein* 3.2 mg/dL (0.5-1.0)
[2022-01-01 09:04] VITALS: BP 159/79; PULSE 65; RESP 20; TEMP 36.6; O2SAT 95
[2022-01-01] MEDS: LACTOBACILLUS ACIDOPHILUS 1 TABLET 2 TAB PO ×3 (09:22→20:24)
[2022-01-01] MEDS: CETIRIZINE HCL 10 MG TABLET PO (09:22)
[2022-01-01] MEDS: cefTRIAXone 2 GM in 0.9 % SODIUM CHLORIDE Mini-bag 100 ML IVPB (09:26)
[2022-01-01] MEDS: ASPIRIN 81 MG TABLET EC PO (11:51)
[2022-01-01] MEDS: AMLODIPINE 5 MG TABLET PO (11:51)
[2022-01-01] MEDS: OMEPRAZOLE 20 MG CAPSULE DR PO (11:52)
[2022-01-01] MEDS: METOPROLOL SUCCINATE (XL) 25 MG TAB PO (11:52)
[2022-01-01 13:35] VITALS: BP 171/93; PULSE 63; RESP 20; TEMP 36.3; O2SAT 96
--- NOTE | 2022-01-01 16:00 | PM.IMPN1 ---
Progress Note: A&P Assessment and plan (1) Gram-negative bacteremia: Problem details: Second set of blood cultures remain negative. She is hemodynamically stable. We will transition to oral Levaquin tomorrow morning. Status: Acute (2) Bacteriuria with pyuria: Problem details: E coli, same organism that is growing in her urine. Status: Acute (3) High transaminase levels: Problem details: Hep panel negative. Ultrasound confirms steatohepatitis. LFTs down trending. Patient said that she has cut back on her alcohol significantly over the last year. Status: Acute (4) Hypomagnesemia: Problem details: Replaced and improved Status: Acute (5) Hypokalemia due to excessive gastrointestinal loss of potassium: Problem details: Replaced and improved Status: Acute (6) Diarrhea: Problem details: Prep tonight for colonoscopy in the morning. Status: Acute (7) Weakness: Problem details: Bacteremic, UTI, chronic diarrhea with low Mag and low potassium. Improving. Status: Acute Subjective Date Seen: 01/01/22 Interval history: Daily Progress Note - Hospital Medicine Day #: 4 CC: Severe diarrhea, UTI, presyncope, positive blood cultures OVERNIGHT UPDATES FROM STAFF & MED, LAB, IMAGING UPDATES Feels better. Has not had any bowel movements overnight. Has been on scheduled Imodium. Does feel like she is urinating and to the point of being annoying overnight. No new fevers. Appetite has increased some. Blood pressure has responded nicely to holding antihypertensives and fluid bolus and control of the underlying infection early in her hospitalization. I restarted her metoprolol and amlodipine yesterday CBC stable. Mild anemia. Mild leukopenia. Platelets are back up this morning. Metabolic panel unremarkable Calcium improved LFTs down trending. CRP down trending. Albumin remains low. Negative hep panel Blood cultures are growing E coli as is the urine culture. This E coli is resistant to ampicillin, Bactrim, gentamicin. The current ceftriaxone is sensitive. Review of Systems: Still dizzy upon ambulation See subjective Cardiac: No new chest pain/pressure/palpitations. Respiratory: no new dyspnea. GI: No abdominal bloating Objective: He looks tired. Stated age. Still laughing and cracking jokes. Vitals: see above Lungs: Clear. Cardiac: S1S2. Abdomen nonacute. Disposition/Potential discharge - Likely to return to previous living situation. Total time is 35 minutes with greater than 50% spent in counseling and coordination of care. Exam Const: Vital Signs, click to edit/add: Vital Signs - 24 hr 12/31/21 19:00 12/31/21 19:00 12/31/21 23:00 Temperature 97.8 F Pulse Rate [Right Pulse Oximeter] 72 70 Pulse Rate [orthos tatic lying Right Brachial] 70 Pulse Rate [orthos tatic sitting Righ t Brachial] 74 Pulse Rate [orthos tatic standing Rig ht Brachial] 83 Respiratory Rate 20 20 Blood Pressure [Le ft Arm] 121/64 Blood Pressure [or thostatic lying Ri ght Arm] 138/58 L Blood Pressure [or thostatic sitting Right Arm] 157/58 H Blood Pressure [or thostatic standing Right Arm] 170/101 H Pulse Oximetry 98 Oxygen Delivery Me thod Room Air 12/31/21 23:00 01/01/22 03:00 Temperature 97.8 F 97.8 F Pulse Rate [Right Pulse Oximeter] 70 68 Pulse Rate [orthos tatic lying Right Brachial] Pulse Rate [orthos tatic sitting Righ t Brachial] Pulse Rate [orthos tatic standing Rig ht Brachial] Respiratory Rate 20 20 Blood Pressure [Le ft Arm] 138/58 L 136/62 Blood Pressure [or thostatic lying Ri ght Arm] Blood Pressure [or thostatic sitting Right Arm] Blood Pressure [or thostatic standing Right Arm] Pulse Oximetry 98 95 Oxygen Delivery Me thod Room Air Room Air Labs Labs: Laboratory Results - last 24 hr 01/01/22 01/01/22 01/01/22 06:35 06:35 06:35 WBC 3.12 L RBC 3.46 L Hgb 11.2 L Hct 34.0 MCV 98 MCH 32 MCHC 33 Plt Count 136 L VBG pH 7.432 H VBG pCO2 37 L VBG pO2 55.2 H VBG HCO3 25 Sodium 135 Potassium 3.8 Chloride 106 Carbon Dioxide 23 BUN 7 Creatinine 0.5 Estimated Creat Clear 46.50 Estimated GFR 102 Glucose 107 Calcium 8.3 L Ionized Calcium [place] 1.10 L Magnesium 1.7 Total Bilirubin 0.6 GGT 337 H AST 59 H ALT 47 H Alkaline Phosphatase 90 C-Reactive Protein 3.2 H Total Protein 5.6 L Albumin 2.9 L
[2022-01-01] MEDS: PEG-3350 SODIUM CL/BICARB-KCL 4,000 ML SOLN 4000 ML PO (17:20)
[2022-01-01 17:30] VITALS: BP 186/95; PULSE 65; RESP 20; TEMP 36.8; O2SAT 96
[2022-01-01 21:00] VITALS: BP 181/109; PULSE 63; RESP 20; TEMP 36.4; O2SAT 98
--- NOTE | 2022-01-01 21:07 | PC.NURSE ---
: Pt. up independently in room, tolerating activity well. Denied pain, noted feeling a bit 'unwell' part way through shift, but not nauseated. This seemed to pass. Pt. noted anxiety re: upcoming colonoscopy scheduled for tomorrow @ 1200. Declined taking loperamide this morning. 1 BM during morning. Saline locked. Pt. had 6 BM's prior to 1899, most recent yellow-brown in color. Pt. understanding of need to drink the concoction in order to gain desired results. Last IV antibiotic medication administered; will transfer to PO med tomorrow. Pt. aware. So far, pt. tolerating bowel prep as expected.
[2022-01-01 23:00] VITALS: PULSE 70; RESP 20
[2022-01-02 00:49] VITALS: BP 148/72; PULSE 70; RESP 20; TEMP 36.4; O2SAT 97
[2022-01-02 05:00] VITALS: BP 149/74; PULSE 63; RESP 20; TEMP 36.6; O2SAT 95
[2022-01-02 06:46] LABS: Ionized Calcium* 1.15 mmol/L (1.11-1.30); Lactate* 0.6 mmol/L (0.5-1.9)
[2022-01-02 06:55] LABS: Hematocrit 36.5 % (33.0-51.0); Mean Corpuscular HGB Conc 33 gm/dL (32-36); Mean Corpuscular Hemoglobin 32 pg (26-34); Mean Corpuscular Volume 98 fL (80-100); Platelet Count* 174 K/uL (140-440); Red Blood Count 3.73 m/uL (4.00-5.20); White Blood Count* 3.25 K/uL (4.50-11.00)
[2022-01-02 07:24] LABS: Slide Review Reflex No
[2022-01-02 07:31] LABS: Albumin* 3.4 g/dL (3.3-5.0); Chloride* 103 mmol/L (96-114); Sodium* 136 mmol/L (135-149)
[2022-01-02 07:32] LABS: Potassium* 3.7 mmol/L (3.6-5.1)
[2022-01-02 07:33] LABS: Creatinine* 0.5 mg/dL (0.5-1.5); Estimated Glomerular Filt Rate 102 ml/min
[2022-01-02 07:34] LABS: Alanine Aminotransferase* 67 U/L (4-35); Alkaline Phosphatase* 104 U/L (40-150); Aspartate Amino Transferase* 92 U/L (12-35); Bilirubin Total* 0.7 mg/dL (0.1-1.5); Blood Urea Nitrogen* 5 mg/dL (7-30); Carbon Dioxide* 24 mmol/L (20-32); Glucose* 96 mg/dL (60-115); Lipase* 71 U/L (23-300); Total Protein* 6.2 g/dL (6.0-8.3)
[2022-01-02 07:35] LABS: Calcium* 8.6 mg/dL (8.4-10.6); Magnesium* 1.5 mg/dL (1.5-2.6)
[2022-01-02 07:37] LABS: C Reactive Protein* 2.4 mg/dL (0.5-1.0)
--- NOTE | 2022-01-02 07:37 | PC.NURSE ---
19-: pt pleasant and cooperative. No c/o pain. Pt kept a tally sheet of how many stools she had along with their characteristics. Bowel prep completed once we both assessed her stool, very clear and water like. BP elevated. VSS. Afebrile.
[2022-01-02 08:13] VITALS: BP 189/102; PULSE 75; RESP 18; TEMP 36.6; O2SAT 96
[2022-01-02] MEDS: AMLODIPINE 5 MG TABLET PO (08:31)
[2022-01-02] MEDS: ASPIRIN 81 MG TABLET EC PO (08:31)
[2022-01-02] MEDS: METOPROLOL SUCCINATE (XL) 25 MG TAB PO (08:31)
[2022-01-02] MEDS: levoFLOXacin 500 MG TABLET PO (08:31)
[2022-01-02] MEDS: OMEPRAZOLE 20 MG CAPSULE DR PO (08:31)
[2022-01-02] MEDS: LACTOBACILLUS ACIDOPHILUS 1 TABLET 2 TAB PO ×2 (08:31→13:24)
[2022-01-02] MEDS: CETIRIZINE HCL 10 MG TABLET PO (08:36)
[2022-01-02] MEDS: ALBUTEROL INHALER 1 PUFF IH (08:36)
[2022-01-02 09:13] VITALS: BP 163/82; BP 171/102; BP 173/100; PULSE 59; PULSE 70; PULSE 80
--- NOTE | 2022-01-02 12:16 | W.ANESCHARGE ---
Anesthesia Charges Start Date/Time Anesthesia Start Date: 01/02/22 Anesthesia Start Time: 11:16 Stop Date/Time Anesthesia Stop Date: 01/02/22 Anesthesia Stop Time: 11:41
--- NOTE | 2022-01-02 12:20 | W.ANESCHARGE ---
Anesthesia Charges Start Date/Time Anesthesia Start Date: 01/02/22 Anesthesia Start Time: 11:16 Stop Date/Time Anesthesia Stop Date: 01/02/22 Anesthesia Stop Time: 11:41 Summary Emergency: No
[2022-01-02 14:01] VITALS: PULSE 87; RESP 18; TEMP 36.6
--- NOTE | 2022-01-02 16:46 | PM.DS1 ---
DS: Providers Provider Date Seen: 01/02/22 Date of admission: 12/30/21 09:22 Primary care physician: Tessie Marroquin MD Admitting Clinician: Anthony Zaidi MD Consults: Endoscopy Attending Physician on discharge: Jade Rascon MD Date of Discharge: 01/02/22 DS: Diagnosis Discharge Diagnosis (1) Gram-negative bacteremia: Status: Acute Problem details: E coli. Likely from UTI. Chronic diarrhea x2 months. Responded nicely to IV Rocephin transitioning to oral Levaquin. (2) High transaminase levels: Status: Acute Problem details: Hep panel negative. Ultrasound confirms steatohepatitis. LFTs down trending. Patient said that she has cut back on her alcohol significantly over the last year. (3) Diarrhea: Status: Acute Problem details: Colonoscopy showed normal mucosa. Biopsies were taken. No obvious etiology for her history of diarrhea. DS: Summary Hospital Course Hospital Course: HOSPITALIST DISCHARGE SUMMARY ATTENDING PHYSICIAN: Jade Rascon MD FINAL DIAGNOSIS: Dehydration from chronic diarrhea Electrolyte abnormalities from chronic diarrhea UTI and subsequent bacteremia Morbid obesity Fatty liver HOSPITAL FOLLOWUP ISSUES: 1. Blood pressure. Her blood pressure was elevated after resuscitation from being dehydrated. I increased her amlodipine to 10 mg and asked her to see her PCP for follow-up on this. 2. E coli bacteremia, likely from UTI. I have asked her to finish Levaquin for a total of a 14 day antibiotic course. 3. Chronic diarrhea, resolved throughout her stay here. Colonoscopy was done on day of discharge. Biopsies are pending. Her PCP can go over findings on colonoscopy. REFERRALS WHILE ADMITTED: Endoscopy REFERRALS AFTER DISCHARGE: None BRIEF HOSPITAL COURSE: Katherine came in dehydrated with several electrolyte abnormalities and mildly hypotensive. She was weak. She was found to be bacteremic with E coli. This presumed was from her UTI. She had had chronic diarrhea for 2 once. We fluid hydrated her. We gave her antibiotics. We also did a colonoscopy which was unrevealing. She was much improved on the day of discharge. She was anxious to return home. While she was hypotensive upon arrival she was hypertensive by discharge. I adjusted her amlodipine. I have asked her to finish her antibiotic course orally at home with Levaquin. She should see her PCP to follow up on colonoscopy biopsies and blood pressure. There is a viral PCR pending on her stool. Stool culture is negative at discharge but still not finalized. And her C diff was negative. The etiology for her diarrhea is still unclear. I a.m. sending her home on a probiotic and she can follow-up with nutrition if she continues to have loose stools. VITAL SIGN, MEDICATION, LAB/MICRO, IMAGING SUMMARY (full details available in account tabs or by records request) DISCHARGE MEDICATIONS: See Reconciled list REVIEW OF SYSTEMS No new chest pain or dyspnea Pain controlled No voiding difficulties Tolerating diet challenge PHYSICAL EXAM: CONSTITUTIONAL: Much stronger. Getting dressed when we were doing her discharge. She was laughing. She was feeling much improved. VITAL SIGNS: see record. HEENT: Normocephalic, atraumatic. PERRL, EOMI, conjunctivae pink, no scleral icterus. Ears and nose externally normal. Pharynx normal. NECK: No JVD. No carotid bruit, no thyromegaly, no adenopathy. CHEST: Clear to auscultation bilaterally. HEART: S1 and S2 normal. Edema ABDOMEN: Soft, nontender. Normal bowel sounds. MUSCULOSKELETAL: No gross joint deformity or swelling. NEURO: Cranial nerves intact. Grossly intact. No asymmetric findings. SKIN: No rashes, petechiae, concerning changes PSYCHIATRIC: Mood euthymic. DISPOSITION: Home with family Time spent on discharge 37 minutes. Status at Discharge Functional status at discharge: independent ambulation Overall status at discharge: patient is progressing back to baseline Time Spent with Patient Time attestation: Total time spent providing and/or coordinating discharge services: Time spent: Greater than 30 minutes Exam Const: Vital Signs, click to edit/add: Vital Signs - 24 hr 01/01/22 17:30 01/01/22 17:30 01/01/22 21:00 Temperature 98.3 F 97.6 F Pulse Rate Pulse Rate [Right Pulse Oximeter] 65 65 63 Pulse Rate [orthos tatic lying Right Brachial] Pulse Rate [orthos tatic sitting Righ t Brachial] Pulse Rate [orthos tatic standing Rig ht Brachial] Respiratory Rate 20 20 20 Blood Pressure [Le ft Arm] 186/95 H 181/109 H Blood Pressure [or thostatic lying Ri ght Arm] Blood Pressure [or thostatic sitting Right Arm] Blood Pressure [or thostatic standing Right Arm] Pulse Oximetry 96 98 Oxygen Delivery Me thod Room Air Room Air 01/01/22 23:00 01/02/22 00:49 01/02/22 05:00 Temperature 97.6 F 98 F Pulse Rate Pulse Rate [Right Pulse Oximeter] 70 70 63 Pulse Rate [orthos tatic lying Right Brachial] Pulse Rate [orthos tatic sitting Righ t Brachial] Pulse Rate [orthos tatic standing Rig ht Brachial] Respiratory Rate 20 20 20 Blood Pressure [Le ft Arm] 148/72 H 149/74 H Blood Pressure [or thostatic lying Ri ght Arm] Blood Pressure [or thostatic sitting Right Arm] Blood Pressure [or thostatic standing Right Arm] Pulse Oximetry 97 95 Oxygen Delivery Me thod Room Air Room Air 01/02/22 08:13 01/02/22 09:13 01/02/22 14:01 Temperature 97.8 F 97.8 F Pulse Rate 87 Pulse Rate [Right Pulse Oximeter] 75 Pulse Rate [orthos tatic lying Right Brachial] 59 L Pulse Rate [orthos tatic sitting Righ t Brachial] 70 Pulse Rate [orthos tatic standing Rig ht Brachial] 80 Respiratory Rate 18 18 Blood Pressure [Le ft Arm] 189/102 H Blood Pressure [or thostatic lying Ri ght Arm] 163/82 H Blood Pressure [or thostatic sitting Right Arm] 173/100 H Blood Pressure [or thostatic standing Right Arm] 171/102 H Pulse Oximetry 96 Oxygen Delivery Me thod Room Air DS: Data Data Completed and Pending Labs on day of discharge: Labs from last 24 hours 01/02/22 01/02/22 01/02/22 06:05 06:05 06:05 WBC RBC Hgb Hct MCV MCH MCHC Plt Count Diff Slide Review Sodium 136 Potassium 3.7 Chloride 103 Carbon Dioxide 24 BUN 5 L Creatinine 0.5 Estimated Creat Clear 46.50 Estimated GFR 102 Glucose 96 Lactate 0.6 Calcium 8.6 Ionized Calcium Mila 1.15 Magnesium 1.5 Total Bilirubin 0.7 AST 92 H ALT 67 H Alkaline Phosphatase 104 C-Reactive Protein 2.4 H Total Protein 6.2 Albumin 3.4 Lipase 71 TSH 4.510 H 01/02/22 06:05 WBC 3.25 L RBC 3.73 L Hgb 12.0 Hct 36.5 MCV 98 MCH 32 MCHC 33 Plt Count 174 Diff Slide Review Not Reportable Sodium Potassium Chloride Carbon Dioxide BUN Creatinine Estimated Creat Clear Estimated GFR Glucose Lactate Calcium Ionized Calcium Mila Magnesium Total Bilirubin AST ALT Alkaline Phosphatase C-Reactive Protein Total Protein Albumin Lipase TSH Preliminary micro results at discharge 12/29/21 14:47 Blood Culture - Preliminary Blood NO GROWTH AFTER 96 HOURS 12/31/21 12:24 Blood Culture - Preliminary Blood NO GROWTH AFTER 48 HOURS 12/31/21 12:24 Blood Culture - Preliminary Blood NO GROWTH AFTER 48 HOURS 12/29/21 15:01 Blood Culture - Preliminary Blood Escherichia coli Discharge Plan Discharge Disposition: Home, Self-Care Date of Admission: 12/30/21 09:22 Attending Provider on Discharge: Jade Rascon Primary Care Provider: Tessie Marroquin Condition: Improved Anticipated Discharge Date/Time: 01/02/22 13:35 Discharge Medications: New Lactobacillus acidophilus 0.5 mg (100 million cell) Tablet 1 mg PO TIDWM Qty: 90 0RF Rx Instructions: pharmacy if expensive for patient; pick out another probiotic for her OTC levofloxacin 500 mg Tablet 500 mg PO Q24H Qty: 10 0RF Rx Instructions: take until gone; take with food loperamide 2 mg Capsule 2 mg PO QID PRN (Reason: diarrhea) Qty: 20 0RF Continued acetaminophen 325 mg capsule 650 mg PO Q6H PRN albuterol sulfate 90 mcg/actuation HFA aerosol inhaler 1 inh inhalation Q4-6H PRN aspirin [Adult Aspirin Regimen] 81 mg tablet,delayed release (DR/EC) 81 mg PO DAILY atorvastatin 80 mg tablet 80 mg PO DAILY budesonide-formoterol 160-4.5 mcg/actuation HFA aerosol inhaler 2 inh inhalation BID cetirizine 10 mg tablet 10 mg PO DAILY PRN cholecalciferol (vitamin D3) 25 mcg (1,000 unit) capsule 25 mcg PO DAILY ezetimibe 10 mg tablet 10 mg PO DAILY metoprolol succinate 25 mg tablet extended release 24 hr 25 mg PO DAILY nitroglycerin [Nitrostat] 0.4 mg tablet, sublingual 0.4 mg sublingual Q5-15M PRN Rx Instructions: do not exceed 3 doses per episode omeprazole 20 mg tablet,delayed release (DR/EC) 20 mg PO DAILY Changed amlodipine 5 mg tablet 10 mg PO DAILY Qty: 60 0RF Discharge Orders: Discharge Order (Routine); Ordered 01/02/22 Ordered By: Jade Rascon Patient Education: Loperamide (By mouth), Levofloxacin (By mouth), Probiotic (By mouth), Urinary Tract Infection in Women (DC), Weakness (DC) Activity Restrictions/Additional Instructions: Your blood pressure was elevated as the week went on. I've increased your amlodipine to 10mg; watch your BP; may need to be decreased. PCP to help guide. Take ALL your antibiotic A probiotic (for example lactobacillus) has been sent to your pharmacy. take this for a week or two until BMs are back to normal. Imodium is also sent; may not need it at all; if you do - go easy 1-2 caps 2-3x a day MAX Activity Level: Activity as Tolerated Discharge Diet: Heart Healthy (2 gm sodium, low fat) Follow Up Appointments: Tessie Marroquin MD [Primary Care Provider] - 01/08/22 10:55 am (1-2 weeks, next available. f/u BP, bacteremia; hospital f/u) Forms: [employer] Info Instructions
--- NOTE | 2022-01-02 17:34 | PC.NURSE ---
Discharge: Patient independent, able to perform all ADLs herself. Tolerating regular diet. Denies nausea or pain. Vitals stable, IV removed by ALEJANDRA Atkins. Discharge instructions and medication orders given, follow ups reviewed, questions answered as needed. Patient discharged from floor @ 1735 via wheelchair, son picked up from ED entrance to bring home.
[2022-01-08 21:23] LABS: Ova and Parasite, Fecal Negative (Negative)
== END 2022-01-02 17:30 | disposition home or self-care (01) | DRG 690 ==
LOC: ED 17:33 → MEDSURG 17:39
PROVIDERS: Family Medicine; Admitting Provider Internal Medicine; Emergency Provider Family Medicine; PCP Family Medicine; Visit Provider Family Medicine
DX: N30.00 Acute cystitis without hematuria (principal); R78.81 Bacteremia; Z68.41 Body mass index [BMI] 40.0-44.9, adult; B96.20 Unspecified Escherichia coli [E. coli] as the cause of diseases classified elsewhere; E86.0 Dehydration; K52.9 Noninfective gastroenteritis and colitis, unspecified; K63.5 Polyp of colon; R42 Dizziness and giddiness; E87.6 Hypokalemia; E83.42 Hypomagnesemia; K76.0 Fatty (change of) liver, not elsewhere classified; Z86.010 Personal history of colon polyps; R53.1 Weakness; I10 Essential (primary) hypertension; E66.01 Morbid (severe) obesity due to excess calories; I25.10 Atherosclerotic heart disease of native coronary artery without angina pectoris; K21.9 Gastro-esophageal reflux disease without esophagitis; E78.1 Pure hyperglyceridemia; K57.90 Diverticulosis of intestine, part unspecified, without perforation or abscess without bleeding; K44.9 Diaphragmatic hernia without obstruction or gangrene; E78.5 Hyperlipidemia, unspecified; J45.909 Unspecified asthma, uncomplicated
CPT/HCPCS: 00811; 36415; 45380; 71046; 74177; 76705; 80048; 80053; 80074; 80076; 81001; 82077; 82330; 82565; 82803; 82977; 83605; 83690; 83735; 83880; 84132; 84295; 84443; 84484; 85025; 85027; 85379; 85610; 86140; 87040; 87045; 87046; 87086; 87158; 87177; 87186; 87209; 87427; 87493; 87635; 88305; 99285; 99291; G0378; A9270; J0610; J0696; J2405; J2704; J2765; J3475; J7030; J7120; Q9967

== ENCOUNTER 2023-05-15 15:17 | Outpatient (CLI) | payer MEDICARE, OTHER, SELFPAY | END 2023-05-15 15:18 | disposition home or self-care (01) | LOC: AMB 05-17 09:47 | PROVIDERS: PCP Family Medicine; Visit Provider Emergency Medicine | DX: R07.89 Other chest pain (principal) | CPT/HCPCS: A0425; A0434 ==